=== PATIENT | male | born 1965 | race Caucasian/White ===

== ENCOUNTER 2020-09-20 17:01 | Inpatient (IN) | payer OTHER ==
[~2020-09-20] VITALS: Ht 182.9 cm; Wt 80.0 kg
[~2020-09-20 17:01] MED LIST: ALBU90OI INH; AMOX500 PO; CYCL10 PO; HYDACE5 PO; NAPR500 PO; OXYACE5T PO; PENVK500 PO; POTCHL20ER PO; PROACE100 PO; RXHYDACE PO; RXPROACE PO; TRAM50 PO
[2020-09-20 18:11] LABS: BASOPHILS ABSOLUTE AUTO 0.02 K/mm3 (0.00-0.23); BASOPHILS PERCENT AUTO 0 % (0-2); EOSINOPHILS ABSOLUTE AUTO 0.04 K/mm3 (0.00-0.68); EOSINOPHILS PERCENT AUTO 0 % (0-6); Hematocrit 42.6 % (37.0-53.0); Hemoglobin 14.1 g/dL (13.5-17.5); IMMATURE GRAN ABSOLUTE AUTO 0.04 K/mm3 (0.00-0.10); IMMATURE GRAN PERCENT AUTO 0 % (0-1); LYMPHOCYTES ABSOLUTE AUTO 2.28 K/mm3 (0.84-5.20); LYMPHOCYTES PERCENT AUTO 16 % (21-46); MONOCYTES ABSOLUTE AUTO 1.66 K/mm3 (0.16-1.47); MONOCYTES PERCENT AUTO 12 % (4-13); Mean Corpuscular HGB 30.7 pg (26.0-34.0); Mean Corpuscular HGB Conc 33.1 g/dL (31.5-36.5); Mean Corpuscular Volume 93 fL (80-100); Mean Platelet Volume 9.7 fL (9.1-12.4); NEUTROPHILS ABSOLUTE AUTO 9.98 K/mm3 (1.96-9.15); NEUTROPHILS PERCENT AUTO 71 % (41-73); Platelet Count 220 K/mm3 (150-400); RDW Coefficient Variation 13.3 % (11.7-14.2); RDW Standard Deviation 45.2 fL (35.1-46.3); White Blood Cell Count 14.02 K/mm3 (4.00-11.30)
[2020-09-20 18:42] LABS: Troponin I 0.156 ng/mL (0.000-0.040)
[2020-09-20 18:47] LABS: Alanine Aminotransfer (ALT/SGP 52 U/L (12-78); Albumin, Blood 3.5 g/dL (3.4-5.0); Albumin/Globulin Ratio 0.9 (0.8-1.8); Alk Phos 107 U/L (50-136); Anion Gap 4 mmol/L (6-16); Aspartate Aminotrans (AST/SGOT 21 U/L (12-37); Bilirubin, Total 1.7 mg/dL (0.1-1.0); Blood Urea Nitrogen 23 mg/dL (8-24); Bun/Creatinine Ratio 21.3 (12.0-20.0); CO2, Blood 25 mmol/L (21-32); Calcium, Blood 9.4 mg/dL (8.5-10.1); Chloride, Blood 108 mmol/L (98-108); Creatinine, Blood 1.08 mg/dL (0.60-1.20); Globulin, Blood 3.8 g/dL (2.2-4.0); Glomerular Filtration Rate >60 (60-); Glucose, Blood 97 mg/dL (70-99); Sodium, Blood 137 mmol/L (136-145); Total Protein, Blood 7.3 g/dL (6.4-8.2)
--- NOTE | 2020-09-21 00:47 | NUR ---
ADMIT NOTE PT ARRIVED TO PCU FROM ED VIA ED STRETCHER AT 2355. PT AMBULATED INDEPENDENTLY FROM ED STRETCHER TO PCU BED. PT A&OX4. SP02>92% ON RA. TELEMETRY READS ST W/ PACS, HR 100'S. PT DENIED PAIN. PT ASKING QUESTIONS ABOUT HIS CURRENT ILLNESS AND ASKING HOW HE CAN PREVENT EVENTS LIKE THIS IN THE FUTURE. PT ORIENTED TO ROOM AND CALL LIGHT. CALL LIGHTIN REACH.
[2020-09-21 02:11] LABS: BASOPHILS ABSOLUTE AUTO 0.02 K/mm3 (0.00-0.23); BASOPHILS PERCENT AUTO 0 % (0-2); EOSINOPHILS ABSOLUTE AUTO 0.16 K/mm3 (0.00-0.68); EOSINOPHILS PERCENT AUTO 1 % (0-6); Hematocrit 42.9 % (37.0-53.0); IMMATURE GRAN ABSOLUTE AUTO 0.04 K/mm3 (0.00-0.10); IMMATURE GRAN PERCENT AUTO 0 % (0-1); LYMPHOCYTES ABSOLUTE AUTO 2.91 K/mm3 (0.84-5.20); LYMPHOCYTES PERCENT AUTO 23 % (21-46); MONOCYTES PERCENT AUTO 12 % (4-13); Mean Corpuscular HGB 30.3 pg (26.0-34.0); Mean Corpuscular HGB Conc 32.6 g/dL (31.5-36.5); Mean Corpuscular Volume 93 fL (80-100); Mean Platelet Volume 9.7 fL (9.1-12.4); NEUTROPHILS PERCENT AUTO 63 % (41-73); Platelet Count 228 K/mm3 (150-400); RDW Coefficient Variation 13.3 % (11.7-14.2); RDW Standard Deviation 45.1 fL (35.1-46.3); Red Blood Cell Count 4.62 M/mm3 (4.30-5.90); White Blood Cell Count 12.63 K/mm3 (4.00-11.30)
[2020-09-21 02:32] LABS: Alanine Aminotransfer (ALT/SGP 47 U/L (12-78); Albumin, Blood 3.2 g/dL (3.4-5.0); Albumin/Globulin Ratio 0.8 (0.8-1.8); Alk Phos 103 U/L (50-136); Anion Gap 8 mmol/L (6-16); Aspartate Aminotrans (AST/SGOT 16 U/L (12-37); Bilirubin, Total 1.9 mg/dL (0.1-1.0); Blood Urea Nitrogen 22 mg/dL (8-24); CO2, Blood 26 mmol/L (21-32); CPK Creatine Kinase 77 U/L (39-308); Chloride, Blood 106 mmol/L (98-108); Globulin, Blood 3.9 g/dL (2.2-4.0); Glomerular Filtration Rate >60 (60-); Glucose, Blood 105 mg/dL (70-99); Potassium, Blood 3.5 mmol/L (3.5-5.5); Sodium, Blood 140 mmol/L (136-145); Total Protein, Blood 7.1 g/dL (6.4-8.2); Troponin I 0.134 ng/mL (0.000-0.040)
--- NOTE | 2020-09-21 04:18 | NUR ---
AFIB AT APPROX [address] TO AFIB. HR AVG 110'S. CALL PLACED TO MD WATT. MD WATT W/ ORDERS FOR METOPROLOL, SEE EMAR. WILL CONTINUE TO MONITOR.
[2020-09-21 04:49] LABS: Thyroid Stimulating Hormone 1.34 uIU/mL (0.360-4.800)
--- NOTE | 2020-09-21 05:35 | NUR ---
SHIFT SUMMARY PT A&OX4. SP02>92 %ON RA. TELEMETRY AT BEGINNING OF SHIFT READ ST. PT CONVERTED TO AFIB DURING SHIFT, SEE PREVIOUS NOTE AND STRIP IN CHART. HR AVG 110'S. PT USED URINAL MULTIPLE TIMES AT BEDSIDE. PT DENIED PAIN. PT SLEPT T/O NIGHT. CALL LIGHT IN REACH. BED IN LOWEST POSITION.
--- NOTE | 2020-09-21 09:59 | NUR ---
MORNING UPDATE PT WAS AWAKE, ALERT AND ORIENTED THIS MORNING. PT SEEMED NERVOUS ABOUT HIS NEW DIAGNOSIS OF HEART FAILURE AND AFIB. RN AZUL PROVIDED SOME EDUCATION ON WHAT THE DISEASE PROCESS IS LIKE AND WHAT THE GENERAL TREATMENT PLAN IS FOR AFIB AND CHF. PT GAVE VERBAL UNDERSTANDING AND WAS GIVEN SEVERAL OPPORUTNITIES TO EXPRESS CONCERN AND ASK QUESTIONS. PT SEEMED LESS ANXIOUS BY THE END OF THE CONVERSATION AND STATED THAT HE WOULD BE FINE. PT IS NOW WITH IMAGING FOR CT
[2020-09-21 10:15] LABS: Troponin I 0.097 ng/mL (0.000-0.040)
--- NOTE | 2020-09-21 17:28 | NUR ---
SHIFT SUMMARY PT HAS HAD STABLE VS THROUGHOUT THE DAY, PT REMAINS ON RA. PT HAD MANY QUESTIONS IN REGARDS TO HIS DIAGNOSIS AND WAS GIVEN APPROPRIATE GENERAL EDUCATION REGARDING CHF AND THE EFFECTS ON THE BODY AND COMMON TREATMENTS. PT WAS ALSO GIVEN EDUCATION REGARDING AFIB/AFLUTTER AND TREATMENT THAT IS USED FOR THAT. PT GAVE VERBAL UNDERSTANDINGS. PT HAS BEEN RESTING IN BED WATCHING TV. PT HAS EXPRESSED SEVERAL TIMES THAT HE IS WANTING TO GO HOME; AND ACCORDING TO THE PT DR. ELIZONDO STATED THAT MOST LIKELY TOMORROW HE WOULD BE ABLE TO DISCHARGE. AFIB AND TACHYCARDIA HAS BEEN CONTROLLED WITH MEDICATIONS TODAY; OCCASSIONALLY PT WILL HAVE MORE ELEVATED HR WITH ACTIVITY BUT DOES NOT SUSTAIN ONCE RESTING. PT IS EATING DINNER IN HIS ROOM AT THIS TIME
--- NOTE | 2020-09-21 23:12 | NUR ---
PATIENT ALERT AND ORIENTED. INDEPENDENT IN ROOM. ASKING TO GO SMOKE, WILL CALL HOSPITALIST FOR NICOTINE PATCH. 02 SATS >90% ON RA. VSS. PATIENT SLEEPING NOW. CALL LIGHT IN REACH.
[2020-09-22 04:45] LABS: Albumin, Blood 3.1 g/dL (3.4-5.0); Albumin/Globulin Ratio 0.7 (0.8-1.8); Bilirubin, Total 0.4 mg/dL (0.1-1.0); Bun/Creatinine Ratio 25.9 (12.0-20.0); Calcium, Blood 9.4 mg/dL (8.5-10.1); Creatinine, Blood 1.39 mg/dL (0.60-1.20); Globulin, Blood 4.3 g/dL (2.2-4.0); Magnesium, Blood 2.3 mg/dL (1.6-2.4); Phosphorus, Blood 4.1 mg/dL (2.5-4.9); Potassium, Blood 4.2 mmol/L (3.5-5.5); Total Protein, Blood 7.4 g/dL (6.4-8.2)
[2020-09-22 06:09] LABS: Hematocrit 48.3 % (37.0-53.0); Hemoglobin 15.8 g/dL (13.5-17.5); Mean Corpuscular HGB 30.5 pg (26.0-34.0); Mean Corpuscular HGB Conc 32.7 g/dL (31.5-36.5); Mean Corpuscular Volume 93 fL (80-100); Mean Platelet Volume 10.2 fL (9.1-12.4); Platelet Count 244 K/mm3 (150-400); RDW Coefficient Variation 13.3 % (11.7-14.2); RDW Standard Deviation 45.8 fL (35.1-46.3); Red Blood Cell Count 5.18 M/mm3 (4.30-5.90); White Blood Cell Count 12.61 K/mm3 (4.00-11.30)
--- NOTE | 2020-09-22 06:17 | NUR ---
SHIFT SUMMARY PATIENT SLEPT MOST THE NIGHT. CONVERTED FROM A.FLUTTER TO SR 80s-90s. VSS. NO ACUTE CHANGES. 02 SATS >95% ON ROOM AIR. CALL LIGHT IN REACH.
--- NOTE | 2020-09-22 09:42 | NUR ---
MORNING UPDATE PT WAS SLEEPING DURING SHIFT CHANGE. PT WAS COOPERATIVE WITH MORNING MEDS AND ASSESSMENT. PT RECEIVED EDUCATION ON HIS HEART RHYTHM CHANGE BACK TO SINUS RHYTHM AND WAS VERY PLEASED THAT THE MEDICATION WAS WORKING. ORDERED A STRESS TEST THIS MORNING AND PT REFUSED STATING "I NEED TO GET HOME, I NEED TO GET BACK TO WORK, I CAN'T LOSE THIS JOB." WAS INFORMED AND AGREED TO DISCHARGE THE PATIENT AND SET HIM UP WITH OUTPATIENT STRESS TEST AND DISCHARGE ORDERS; PT AGREED. PT IS RESTING IN BED AT THIS TIME. VS STABLE, HR 90s SR PT ON RA.
[2020-09-22] MEDS ORDERED: Amoxicillin500 MG PO (10:34)
[2020-09-22] MEDS ORDERED: Acetaminophen325 M1 PO (10:35)
[2020-09-22] MEDS ORDERED: AZIT500 PO (10:36)
[2020-09-22] MEDS ORDERED: FURO20 PO (10:39)
[2020-09-22] MEDS ORDERED: COMBIVENT RESPIM4 G1 INH (10:40)
[2020-09-22] MEDS ORDERED: AZO CRANBERRY PO (11:12)
[2020-09-22] MEDS ORDERED: METO25ER PO (11:17)
[2020-09-22] MEDS ORDERED: NICO21TP TOP (11:18)
[2020-09-22] MEDS ORDERED: ONDA4 PO (11:19)
[2020-09-22] MEDS ORDERED: Lisinopril2.5 MG PO (11:20)
[2020-09-22] MEDS ORDERED: POTA10T PO (11:21)
[2020-09-22] MEDS ORDERED: SPIR25 PO (11:22)
--- NOTE | 2020-09-22 12:31 | NUR ---
DISCHARGE PT HAS DISCHARGED. HE WALKED OUT ESCORTED BY CASHIER CHECKER AT APPROXIMATELY 1215. IV'S AND TELE WERE REMOVED, PT TOLERATED WELL. VS STABLE, PT ON RA. HOME O2 STUDY COMPLETED, PT MAINTAINED SAT 99-100% ON RA AT REST AND 97-99% WHILE WALKING IN THE RING ON RA. PT WAS GIVEN EDUCATION REGARDING HF AND NEW MEDICATIONS. NEW PRESCRIPTIONS WERE SENT TO [facility] IN [place]. PT WAS GIVEN INSTRUCTIONS FOR FOLLOW-UP APPOINTMENTS AND ANABELLA LIANG ESTABLISHED CARE WITH A PCP AT [facility] FOR THE PT HE HAD NO ESTABLISHED PCP. PT WAS ENCOURAGED TO GO TO APPOINTMENTS AND COMPLY WITH MEDICATIONS, STOP SMOKING AND AVOID ALCOHOL AND DRUGS. PT GAVE VERBAL UNDERSTANDING OF ALL DISCHARGE INSTRUCTIONS.
[2020-10-11] MEDS ORDERED: Lisinopril2.5 MG PO (19:40)
[2020-10-19] MEDS ORDERED: ACET325UDC PO (09:29)
[2020-10-19] MEDS ORDERED: AMOCLA875 PO (09:30)
[2020-10-19] MEDS ORDERED: Benadryl Itch28.3 G1 TOP (09:30)
[2020-10-19] MEDS ORDERED: OLAN10 PO (09:31)
[2020-10-19] MEDS ORDERED: METO25 PO (09:31)
[2020-10-19] MEDS ORDERED: PRED20 PO (09:36)
[2020-10-19] MEDS ORDERED: XARELTO20 MG PO (09:36)
[2020-10-19] MEDS ORDERED: ARTIFICIAL TEAR15 M2 BOTHEYES (09:36)
[2020-10-19] MEDS ORDERED: VISBIOME 112.51 EACH PO (09:37)
== END 2020-09-22 12:26 | disposition home or self-care (01) | DRG 291 ==
LOC: ER 17:01 → PCU 23:54
PROVIDERS: Family Medicine; Internal Medicine; Physician Assistant; ADMIT Internal Medicine
PROC: 3E0234Z Introduction of Serum, Toxoid and Vaccine into Muscle, Percutaneous Approach (ICD-10-PCS; principal; 2020-09-21)
DX: I11.0 Hypertensive heart disease with heart failure (principal); J96.01 Acute respiratory failure with hypoxia; I50.9 Heart failure, unspecified; Z20.822 Contact with and (suspected) exposure to COVID-19; I08.1 Rheumatic disorders of both mitral and tricuspid valves; R91.8 Other nonspecific abnormal finding of lung field; Z23 Encounter for immunization
CPT/HCPCS: 36415; 71045; 71260; 80053; 82550; 83735; 83880; 84100; 84443; 84484; 85025; 85027; 85379; 93005; 93010; 93306; 96374; 96375; 99285-25; A9270; G0008; J0696; J1650; J1940; J2060; Q2038; Q9967

== ENCOUNTER 2020-10-04 03:59 | Emergency (ER) | payer OTHER ==
[~2020-10-04] VITALS: Ht 182.9 cm; Wt 77.1 kg
[~2020-10-04 03:59] MED LIST changes: +AZIT500 PO; +AZO CRANBERRY PO; +Acetaminophen325 M1 PO; +Amoxicillin500 MG PO; +COMBIVENT RESPIM4 G1 INH; +FURO20 PO; +Lisinopril2.5 MG PO; +METO25ER PO; +NICO21TP TOP; +ONDA4 PO; +POTA10T PO; +SPIR25 PO
[2020-10-04 05:09] LABS: BASOPHILS ABSOLUTE AUTO 0.04 K/mm3 (0.00-0.23); BASOPHILS PERCENT AUTO 0 % (0-2); EOSINOPHILS ABSOLUTE AUTO 0.13 K/mm3 (0.00-0.68); EOSINOPHILS PERCENT AUTO 1 % (0-6); Hematocrit 49.4 % (37.0-53.0); Hemoglobin 15.6 g/dL (13.5-17.5); IMMATURE GRAN ABSOLUTE AUTO 0.05 K/mm3 (0.00-0.10); IMMATURE GRAN PERCENT AUTO 0 % (0-1); LYMPHOCYTES ABSOLUTE AUTO 2.88 K/mm3 (0.84-5.20); LYMPHOCYTES PERCENT AUTO 25 % (21-46); MONOCYTES ABSOLUTE AUTO 0.86 K/mm3 (0.16-1.47); MONOCYTES PERCENT AUTO 7 % (4-13); Mean Corpuscular HGB 30.8 pg (26.0-34.0); Mean Corpuscular HGB Conc 31.6 g/dL (31.5-36.5); Mean Corpuscular Volume 97 fL (80-100); Mean Platelet Volume 10.1 fL (9.1-12.4); NEUTROPHILS ABSOLUTE AUTO 7.76 K/mm3 (1.96-9.15); NEUTROPHILS PERCENT AUTO 66 % (41-73); Platelet Count 296 K/mm3 (150-400); RDW Coefficient Variation 14.2 % (11.7-14.2); RDW Standard Deviation 49.4 fL (35.1-46.3); Red Blood Cell Count 5.07 M/mm3 (4.30-5.90); White Blood Cell Count 11.72 K/mm3 (4.00-11.30)
[2020-10-04 05:23] LABS: Albumin, Blood 3.5 g/dL (3.4-5.0); Albumin/Globulin Ratio 0.8 (0.8-1.8); Bilirubin, Total 1.2 mg/dL (0.1-1.0); Bun/Creatinine Ratio 16.9 (12.0-20.0); Calcium, Blood 9.1 mg/dL (8.5-10.1); Creatinine, Blood 1.54 mg/dL (0.60-1.20); Globulin, Blood 4.3 g/dL (2.2-4.0); Potassium, Blood 4.1 mmol/L (3.5-5.5); Total Protein, Blood 7.8 g/dL (6.4-8.2); Troponin I 0.128 ng/mL (0.000-0.040)
[2020-10-11] MEDS ORDERED: Lisinopril2.5 MG PO (19:40)
[2020-10-19] MEDS ORDERED: ACET325UDC PO (09:29)
[2020-10-19] MEDS ORDERED: AMOCLA875 PO (09:30)
[2020-10-19] MEDS ORDERED: Benadryl Itch28.3 G1 TOP (09:30)
[2020-10-19] MEDS ORDERED: OLAN10 PO (09:31)
[2020-10-19] MEDS ORDERED: METO25 PO (09:31)
[2020-10-19] MEDS ORDERED: ARTIFICIAL TEAR15 M2 BOTHEYES (09:36)
[2020-10-19] MEDS ORDERED: PRED20 PO (09:36)
[2020-10-19] MEDS ORDERED: XARELTO20 MG PO (09:36)
[2020-10-19] MEDS ORDERED: VISBIOME 112.51 EACH PO (09:37)
== END 2020-10-04 08:16 | disposition home or self-care (01) ==
LOC: ER 03:59
PROVIDERS: Student in an Organized Health Care Education/Training Program
DX: I48.92 Unspecified atrial flutter (principal); I50.9 Heart failure, unspecified; Z91.14 Patient's other noncompliance with medication regimen; Z79.899 Other long term (current) drug therapy; Z87.891 Personal history of nicotine dependence
CPT/HCPCS: 36415; 71045; 80053; 83880; 84484; 85025; 93005; 93010; 94640; 96374; 96375; 99285-25; A9270; J1940; J2060

== ENCOUNTER 2020-10-11 18:34 | Inpatient (IN) | payer OTHER ==
[~2020-10-11] VITALS: Ht 182.9 cm; Wt 71.9 kg
[2020-10-11 19:18] LABS: BASOPHILS ABSOLUTE AUTO 0.05 K/mm3 (0.00-0.23); BASOPHILS PERCENT AUTO 0 % (0-2); EOSINOPHILS ABSOLUTE AUTO 0.06 K/mm3 (0.00-0.68); EOSINOPHILS PERCENT AUTO 0 % (0-6); Hematocrit 45.2 % (37.0-53.0); Hemoglobin 14.1 g/dL (13.5-17.5); Mean Corpuscular HGB 30.8 pg (26.0-34.0); Mean Corpuscular HGB Conc 31.2 g/dL (31.5-36.5); Mean Corpuscular Volume 99 fL (80-100); Mean Platelet Volume 11.8 fL (9.1-12.4); NRBC ABSOLUTE 0.02 K/mm3 (0.00-0.02); NRBC Auto 0.1 /100 WBC (0.0-0.2); Platelet Count 139 K/mm3 (150-400); RDW Coefficient Variation 14.1 % (11.7-14.2); RDW Standard Deviation 50.5 fL (35.1-46.3); Red Blood Cell Count 4.58 M/mm3 (4.30-5.90); White Blood Cell Count 16.87 K/mm3 (4.00-11.30)
[2020-10-11 19:24] LABS: IMMATURE GRAN ABSOLUTE AUTO 0.08 K/mm3 (0.00-0.10); IMMATURE GRAN PERCENT AUTO 1 % (0-1); LYMPHOCYTES ABSOLUTE AUTO 4.26 K/mm3 (0.84-5.20); LYMPHOCYTES PERCENT AUTO 25 % (21-46); MONOCYTES ABSOLUTE AUTO 1.83 K/mm3 (0.16-1.47); MONOCYTES PERCENT AUTO 11 % (4-13); NEUTROPHILS ABSOLUTE AUTO 10.59 K/mm3 (1.96-9.15); NEUTROPHILS PERCENT AUTO 63 % (41-73)
[2020-10-11] MEDS ORDERED: Lisinopril2.5 MG PO ×2 (19:40)
[2020-10-11 19:48] LABS: Albumin, Blood 3.5 g/dL (3.4-5.0); Albumin/Globulin Ratio 0.9 (0.8-1.8); Bilirubin, Total 4.1 mg/dL (0.1-1.0); Bun/Creatinine Ratio 30.4 (12.0-20.0); Calcium, Blood 8.8 mg/dL (8.5-10.1); Creatinine, Blood 1.71 mg/dL (0.60-1.20); Globulin, Blood 3.9 g/dL (2.2-4.0); Potassium, Blood 5.2 mmol/L (3.5-5.5); Total Protein, Blood 7.4 g/dL (6.4-8.2); Troponin I 0.176 ng/mL (0.000-0.040)
[2020-10-11 20:32] LABS: Base Excess Venous -13.4 mmol/L; Bicarbonate Venous 14.8 mmol/L (24.0-30.0); PCO2 Venous 25.8 mmHg (38-42); PO2 Venous 42.4 mmHg (38-42); pH Blood Venous 7.31 (7.34-7.37)
[2020-10-11 22:46] LABS: Influenza A, PCR NEGATIVE (NEGATIVE); Influenza B, PCR NEGATIVE (NEGATIVE); Resp Syncytial Virus, PCR NEGATIVE (NEGATIVE); SARS-Cov-2 (COVID-19) PCR, MMC NEGATIVE (NEGATIVE)
[2020-10-11 22:49] LABS: Source, Urine Catheter
[2020-10-11 22:52] LABS: Blood, Urine 2+ (Neg); Glucose Qualitative, Urine Neg (Neg); Ketones, Urine 1+ (Neg); Leukocyte Esterase, Urine 1+ (Neg); Nitrite, Urine Neg (Neg); Protein, Urine 3+ (Neg); Specific Gravity, Urine 1.025 (1.003-1.022); Urobilinogen, Urine 2+ (Normal)
[2020-10-11 22:54] LABS: Appearance, Urine Clear (Clear); Bilirubin, Urine 1+ (Neg); Color, Urine Amber (P-Yellow)
[2020-10-11 22:58] LABS: Red Blood Cells, Urine 0-2 /hpf (0-2)
[2020-10-11 22:59] LABS: Amorphous Mod (0-Heavy); Bacteria Mod /hpf; Squamous Epithelial Cells Not Seen /hpf (Few)
[2020-10-11 23:07] LABS: International Normalized Ratio 2.22; Prothrombin Time Results 22.7 Sec (9.7-11.5)
[2020-10-11 23:10] LABS: Troponin I 0.178 ng/mL (0.000-0.040)
[2020-10-11 23:34] LABS: Magnesium, Blood 2.2 mg/dL (1.6-2.4)
--- NOTE | 2020-10-12 | NUR ---
PT ARRIVES TO ICU 10 VIA GURNEY FROM ER AT 2345 . PT IS NOTED SEDATED AND INTUBATED, GTTS INFUSING ARE VERSED AT 7 MG/HR, PROPOFOL AT 70 MCG/KG/MIN, NS @ 100 ML/HR VENT SETTINGS ARE AC 16, TV 500, FIO2 60%, AND PEEP 5.0, ETT 8.0 AND 25 AT TEETH, VERIFIED WITH RT PREVIOUSLY DOCUMENTED AT 23 CM AT TIME OF INSERTION, PER ABRAHAM DHILLON, CXR WAS DONE WITH ETT @ 25 CM AT TEETH. LUNGS ARE CLEAR WITH DIM BASES BILAT, PT IS NOTED WITH NO GAG WITH ORAL CARE HOWEVER STRONG COUGH IS NOTED WITH TURNING TO REMOVE ER LINEN. HEART RATE IS NOTED 140S, AFLUTTER WITH 2:1 CONDUCTION, PRESSURES SOFT BUT MAINTAINING MAP, NO EDEMA IS NOTED HOWEVER JVD IS PRESENT WELL MARKED SCALP VEIN DISTENTION. 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 IV ACCESS IS LEFT HAND, LEFT AC, AND RIGHT EJ, SEE VASCULAR ACCESS CHARTING.
[2020-10-12 00:52] LABS: U Amphetamine Screen DETECTED; U Barbituate Screen Not Detected; U Benzodiazapine Screen Not Detected; U Buprenorphine Screen Not Detected; U Cannabinoids Screen DETECTED; U Cocaine Screen Not Detected; U Methadone Screen Not Detected; U Methamphetamine Screen DETECTED; U Opiates Screen Not Detected; U Oxycodone Screen Not Detected; U Phencyclidine Screen Not Detected; U Propoxyphene Screen Not Detected
--- NOTE | 2020-10-12 03:15 | NUR ---
SPOKE WITH DR BLAS REGARDING LOPRESSOR ADMINISTRATION, TOTAL OF LOPRESSOR 1.25 MG IV WAS ADMINISTERED SLOWLY AND PT BECAME INCREASINGLY HYPOTENSIVE, ADMINISTRATION WAS STOPPED, PROPOFOL AND VERSED RATES BOTH DECREASED AND CONTINUING TO TITRATE FOR HYPOTENSION, PT LAST BP NOTED AT 114/82, HEART RATE IS IMPROVED TO 110-120S NOW NOTED AFIB. NEW ORDERS FOR HEPARIN GTT AND AMIODARONE ADMINISTRATION.
--- NOTE | 2020-10-12 04:40 | NUR ---
SPOKE WITH DR BLAS REGARDING ORDERED AMIODARONE BOLUS, CONTINUING TO HOLD AT THIS TIME FOR HYPOTENSION HOWEVER RATE REMAINS IMPROVED.
--- NOTE | 2020-10-12 06:22 | NUR ---
PT REMAINS SEDATED AND INTUBATED, PROPOFOL HAS BEEN TITRATED DOWN TO 20 MCG/KG/MIN, VERSED TITRATED DOWN TO 2 MG/HR, GRIMACE TO BROW IS NOTED PT CONTINUES WITHOUT GAG AND RESP RATE IS 16/MIN. FIO2 TITRATED DOWN TO 25% THIS SHIFT OTHERWISE VENT SETTINGS REMAIN UNCHANGED, LUNGS REMAIN CLEAR THROUGHOUT. INITIAL RATE AND RHYTHM AFLUTTER 2:1 CONDUCTION IN THE 140S, PRESSURES DROPPED WITH ADMINSITRATION OF LOPRESSOR 1.25 MG IV HOWEVER HEART RATE ALSO DECREASED TO 110-120S, REMAINDER OF ORDERED DOSE OF 5 MG WAS DISCARDED AND DR BLAS NOTIFIED, AMIODARONE WAS ORDERED HOWEVER HELD DUE TO HYPOTENSION, DR BLAS WAS NOTIFIED AND CAME TO BEDSIDE TO ASSESS PT AT 0600, NS 250 ML BOLUS ORDERED AND ADMINISTERED.
[2020-10-12 07:00] LABS: BASOPHILS ABSOLUTE AUTO 0.04 K/mm3 (0.00-0.23); BASOPHILS PERCENT AUTO 0 % (0-2); EOSINOPHILS ABSOLUTE AUTO 0.11 K/mm3 (0.00-0.68); EOSINOPHILS PERCENT AUTO 1 % (0-6); Hematocrit 35.5 % (37.0-53.0); Hemoglobin 11.4 g/dL (13.5-17.5); IMMATURE GRAN ABSOLUTE AUTO 0.04 K/mm3 (0.00-0.10); IMMATURE GRAN PERCENT AUTO 0 % (0-1); LYMPHOCYTES PERCENT AUTO 23 % (21-46); MONOCYTES ABSOLUTE AUTO 0.76 K/mm3 (0.16-1.47); MONOCYTES PERCENT AUTO 7 % (4-13); Mean Corpuscular HGB 30.2 pg (26.0-34.0); Mean Corpuscular HGB Conc 32.1 g/dL (31.5-36.5); Mean Platelet Volume 11.3 fL (9.1-12.4); NEUTROPHILS ABSOLUTE AUTO 8.03 K/mm3 (1.96-9.15); NEUTROPHILS PERCENT AUTO 69 % (41-73); Platelet Count 118 K/mm3 (150-400); RDW Standard Deviation 47.3 fL (35.1-46.3); Red Blood Cell Count 3.78 M/mm3 (4.30-5.90); White Blood Cell Count 11.58 K/mm3 (4.00-11.30)
[2020-10-12 07:02] LABS: Mean Corpuscular Volume 94 fL (80-100)
[2020-10-12 07:25] LABS: Troponin I 0.144 ng/mL (0.000-0.040)
--- NOTE | 2020-10-12 11:09 | NUR ---
Echocardiogram completed.
--- NOTE | 2020-10-12 11:42 | NUR ---
CARE OF PT ASSUMED AT 0700 THIS AM. PT SEDATED ON PROPOFOL AT 15MCG, VERSED AT 2MG/HR FOR MECH VENT. PT'S PUPILS PINPOINT, PT GRIMACES W ORAL CARE AND HAS STRONG COUGH. PT HYPOTENSIVE THIS AM W MAPS <60. PT IN A FLUTTER W RATE 110-130. PT HAS <10CC U/O. DR LUDWIG GIVEN UPDATE AROUND 0800. PICC LINE PLACED, LEVOPHED STARTED AND TITRATED UP TO 6MCG TO KEEP MAP >65. BP'S SOMEWHAT LABILE. ECHO COMPLETED. PT ON HEPARIN GTT AT 13UNITS, BICARB GTT TO BE DC'D AFTER THIS LITER COMPLETE. VERSED DC'D AT [address] LUDWIG.
--- NOTE | 2020-10-12 12:25 | NUR ---
VERSED DC'D AT [address] LUDWIG. 105CC WASTED W WOLF GEE RN AT 1225.
[2020-10-12 12:30] LABS: International Normalized Ratio 1.87; Prothrombin Time Results 19.3 Sec (9.7-11.5)
--- NOTE | 2020-10-12 13:03 | NUR ---
HEPARIN GTT PLACED ON HOLD PER PHARMACY/DR LUDWIG INR IS THERAPEUTIC. CARDIZEM 10MG IVP FOLLOWED BY GTT ORDERED FOR AFLUTTER W RATE 130-150. LEVOPHED DECREASED TO 4MCG.
--- NOTE | 2020-10-12 13:46 | NUR ---
MOST RECENT INR <2, HEPARIN TO BE RESTARTED, AWAITING NEW ORDERS FROM PHARMACY. RATE 100-130; CARDIZEM TO BE HELD FOR NOW PER DR LUDWIG.
--- NOTE | 2020-10-12 14:35 | NUR ---
HEPARIN GTT RESTARTED AT 15UNITS/KG/HR W 4,000 UNIT HEP BOLUS. LEVOPHED DECREASED TO 2 MCG.
[2020-10-12 15:55] LABS: Troponin I 0.14 ng/mL (0.000-0.040)
[2020-10-12 15:57] LABS: Albumin, Blood 2.7 g/dL (3.4-5.0); Albumin/Globulin Ratio 0.9 (0.8-1.8); Bilirubin, Total 3.7 mg/dL (0.1-1.0); Bun/Creatinine Ratio 31.3 (12.0-20.0); Calcium, Blood 8.9 mg/dL (8.5-10.1); Creatinine, Blood 1.66 mg/dL (0.60-1.20); Globulin, Blood 3.1 g/dL (2.2-4.0); Potassium, Blood 3.9 mmol/L (3.5-5.5); Total Protein, Blood 5.8 g/dL (6.4-8.2)
--- NOTE | 2020-10-12 16:04 | NUR ---
LEVOPHED OFF, SBP 130'S. PT REMAINS IN AFLUTTER W RATE 100-130. PT HAS MADE NO URINE; DR LUDWIG AWARE; PT TO START DIURETICS TOMORROW. PT CONTINUE TO GRIMACE W STIMULI, GROSS MOVEMENT OF EXT'S NOTED. PROPOFOL REMAINS AT 15MCG. PT HAS NOT RECEIVED ADDITIONAL SEDATION/NARCOTICS THIS SHIFT.
--- NOTE | 2020-10-12 17:10 | NUR ---
PT MOD RESTLESS, EYES PARTIALLY OPEN. PT SLIGHTLY TURNS HEAD TOWARDS VOICE BUT UNABLE TO FOLLOW COMMANDS. PUPILS 3/3 EQUAL AND REACTIVE. HEART RATE ELEVATED 140'S. PROPOFOL INCREASED TO 30MCG
--- NOTE | 2020-10-12 19:00 | NUR ---
ASSUMED CARE ASSUMED CARE OF PATIENT. REMAINS INTUBATED- AC 16, TV 500, PEEP 5, FIO2 25%. RR 26. SEDATED WITH PROPOFOL AT 30MCG/KG/MIN. WITHDRAWS TO NOXIOUS STIMULI. MINIMAL GROSS MOTOR MOVEMENT NOTED OTHERWISE, MOSTLY MOVING HEAD. ATTEMPTS TO OPEN EYES. BILATERAL SOFT WRIST RESTRAINTS IN PLACE. MONITOR SHOWS AFLUTTER, RATE 140s-150s. BP STABLE. LEVOPHED REMAINS OFF. TEMP 99.5F PER VELÁZQUEZ TEMP PROBE. OG TO LIS WITH BROWN DRAINAGE. VELÁZQUEZ PATENT AND DRAINING SCANT KARSTEN URINE. HEPARIN GTT INFUSING PER ORDER AT 15UNITS/KG/HR. SEE SHIFT ASSESSMENT FOR FULL ASSESSMENT.
[2020-10-13 04:25] LABS: BASOPHILS ABSOLUTE AUTO 0.04 K/mm3 (0.00-0.23); BASOPHILS PERCENT AUTO 0 % (0-2); EOSINOPHILS ABSOLUTE AUTO 0.09 K/mm3 (0.00-0.68); EOSINOPHILS PERCENT AUTO 1 % (0-6); Hematocrit 39.6 % (37.0-53.0); Hemoglobin 13.1 g/dL (13.5-17.5); IMMATURE GRAN ABSOLUTE AUTO 0.05 K/mm3 (0.00-0.10); IMMATURE GRAN PERCENT AUTO 0 % (0-1); LYMPHOCYTES ABSOLUTE AUTO 0.95 K/mm3 (0.84-5.20); LYMPHOCYTES PERCENT AUTO 7 % (21-46); MONOCYTES ABSOLUTE AUTO 1.16 K/mm3 (0.16-1.47); MONOCYTES PERCENT AUTO 9 % (4-13); Mean Corpuscular HGB Conc 33.1 g/dL (31.5-36.5); Mean Corpuscular Volume 94 fL (80-100); Mean Platelet Volume 11.4 fL (9.1-12.4); NEUTROPHILS ABSOLUTE AUTO 10.98 K/mm3 (1.96-9.15); NEUTROPHILS PERCENT AUTO 83 % (41-73); Platelet Count 148 K/mm3 (150-400); RDW Coefficient Variation 14.6 % (11.7-14.2); RDW Standard Deviation 48.1 fL (35.1-46.3); Red Blood Cell Count 4.22 M/mm3 (4.30-5.90); White Blood Cell Count 13.27 K/mm3 (4.00-11.30)
[2020-10-13 04:40] LABS: International Normalized Ratio 1.5; Prothrombin Time Results 15.7 Sec (9.7-11.5)
[2020-10-13 04:49] LABS: Albumin, Blood 2.6 g/dL (3.4-5.0); Albumin/Globulin Ratio 0.8 (0.8-1.8); Bilirubin, Total 3.9 mg/dL (0.1-1.0); Bun/Creatinine Ratio 26.2 (12.0-20.0); Calcium, Blood 8.3 mg/dL (8.5-10.1); Creatinine, Blood 2.37 mg/dL (0.60-1.20); Globulin, Blood 3.2 g/dL (2.2-4.0); Potassium, Blood 4.7 mmol/L (3.5-5.5); Total Protein, Blood 5.8 g/dL (6.4-8.2)
[2020-10-13 05:40] LABS: PCO2 Arterial 29.5 mmHg (35-45); PO2 Arterial 76.4 mmHg (80-100); pH Blood Arterial 7.48 (7.35-7.45)
--- NOTE | 2020-10-13 06:46 | NUR ---
SHIFT SUMMARY NO ACUTE CHANGES. REMAINS INTUBATED- AC 16, TV 500, PEEP 5, FIO2 25%. SEDATED WITH PROPOFOL AT 30MCG/KG/MIN T/O MOST OF NOC. TITRATED OFF THIS AM FOR WEANING TRIAL. SEE RT DOCUMENTATION. PT DOES NOT FOLLOW COMMANDS. WITHDRAWS EXTREMITES TO STIMULI. VELÁZQUEZ WITH IMPROVED URINE OUTPUT. HEPARIN CONTINUES AT 17UNITS/KG/HR PER PHARMACY. CARDIZEM INFUSED BETWEEN 5-15MG/HR. NOW INFUSING AT 5MG/HR. CONTINUES WITH AFIB/FLUTTER, RATE 70s THIS AM. OG TO LIS. WILL REPORT TO ONCOMING RN WHEN AVAILABLE.
--- NOTE | 2020-10-13 08:45 | NUR ---
CARE ASSUMED OF PT THIS AM AT 0700, BEDSIDE REPORT TAKEN. PT SEDATED ON PROPOFOL AT 15MCG FOR MECH VENT. AC16/500/255/5. LUNGS CLEAR, DIMINISHED TO BASES. MODERATE AMT OF THICK SECRETIONS. SATS >95%. PT DID NOT PASS WEAN THIS AM RESP >40 AND TV<300. PT REMAINS IN A FLUTTER W RATE 70-90. CARDIZEM GTT INFUSING AT 5MG. HEPARIN GTT AT 17. PT RESTLESS AT TIMES, MOVES HEAD BACK AND FORTH, OPENS EYES SPONT. DOES NOT FOLLOW DIRECTIONS, DOES NOT TRACK W EYES. U/O HAS IMPROVED OVERNIGHT. BP REMAINS STABLE; PT REMAINS OFF OF PRESSORS. OG PUTTIMG OUT WHAT APPEARS TO BE SMALL AMTS OF OLD BLOOD, H&H STABLE; WILL NOTIFY DR LUDWIG.
--- NOTE | 2020-10-13 09:20 | NUR ---
DR LUDWIG IN THIS AM, FULL UPDATE GIVEN. WILL MONITOR OG OUTPUT. PROPOFOL PLACED ON STANDBY FOR 30MIN. PT WAS MORE AWAKE, BUT STILL UNABLE TO TRACK W EYES OR FOLLOW SIMPLE COMMANDS. PT RESTLESS, KICKED LEGS, GRIMACED HARSHLY, APPEARED VERY UNCOMFORTABLE. PROPOFOL RESTARTED AT 15MCG.
--- NOTE | 2020-10-13 12:11 | NUR ---
AC DECREASED TO [address] LUDWIG. PT SLIGHTLY MORE RESTLESS ON PROPOFOL AT 15MCG, NO OTHER CHANGES.
--- NOTE | 2020-10-13 13:58 | NUR ---
HEPARIN GTT INCREASED TO 18UNITS PER PHARMACY, REPEAT LABS ORDERED FOR 2100.
--- NOTE | 2020-10-13 16:14 | NUR ---
NO ACUTE CHANGES IN ASSESSMENT.
--- NOTE | 2020-10-13 19:00 | NUR ---
ASSUMED CARE ASSUMED CARE OF PATIENT. INTUBATED- AC 12, TV 500, PEEP 5, FIO2 25%. RR 20. SEDATED WITH PROPOFOL AT 15MCG/KG/MIN. PERIODS OF AGITATION AND RESTLESSNESS NOTED. MOVES ALL EXTREMITIES AND SHIFTS SELF IN BED, BUT NOT FOLLOWING COMMANDS. OPENS EYES SPONTANEOUSLY. BILATERAL SOFT WRIST RESTRAINTS IN PLACE. MONITOR SHOWS AFLUTTER, RATE 70s. BP STABLE. OG WITH PIVOT 1.5 INFUSING AT 25CC/HR (GOAL IS 45CC/HR). VELÁZQUEZ PATENT AND DRAINING DARK KARSTEN URINE. HEPARIN INFUSING AT 18UNITS/KG/HR PER PHARMACY. CARDIZEM GTT AT 5MG/HR. SEE SHIFT ASSESSMENT FOR FULL ASSESSMENT.
[2020-10-14 04:28] LABS: BASOPHILS ABSOLUTE AUTO 0.03 K/mm3 (0.00-0.23); BASOPHILS PERCENT AUTO 0 % (0-2); EOSINOPHILS ABSOLUTE AUTO 0.51 K/mm3 (0.00-0.68); EOSINOPHILS PERCENT AUTO 6 % (0-6); Hematocrit 37.9 % (37.0-53.0); Hemoglobin 12.2 g/dL (13.5-17.5); IMMATURE GRAN ABSOLUTE AUTO 0.03 K/mm3 (0.00-0.10); IMMATURE GRAN PERCENT AUTO 0 % (0-1); LYMPHOCYTES ABSOLUTE AUTO 2.08 K/mm3 (0.84-5.20); LYMPHOCYTES PERCENT AUTO 22 % (21-46); MONOCYTES PERCENT AUTO 10 % (4-13); Mean Corpuscular HGB 30.8 pg (26.0-34.0); Mean Corpuscular HGB Conc 32.2 g/dL (31.5-36.5); Mean Corpuscular Volume 96 fL (80-100); Mean Platelet Volume 11.4 fL (9.1-12.4); NEUTROPHILS ABSOLUTE AUTO 5.75 K/mm3 (1.96-9.15); NEUTROPHILS PERCENT AUTO 62 % (41-73); Platelet Count 139 K/mm3 (150-400); RDW Coefficient Variation 14.9 % (11.7-14.2); RDW Standard Deviation 50.4 fL (35.1-46.3); Red Blood Cell Count 3.96 M/mm3 (4.30-5.90)
[2020-10-14 04:55] LABS: Albumin, Blood 2.3 g/dL (3.4-5.0); Albumin/Globulin Ratio 0.8 (0.8-1.8); Bilirubin, Total 3.4 mg/dL (0.1-1.0); Bun/Creatinine Ratio 29.4 (12.0-20.0); Calcium, Blood 7.9 mg/dL (8.5-10.1); Creatinine, Blood 1.77 mg/dL (0.60-1.20); Magnesium, Blood 2.8 mg/dL (1.6-2.4); Phosphorus, Blood 3.2 mg/dL (2.5-4.9); Potassium, Blood 3.7 mmol/L (3.5-5.5); Total Protein, Blood 5.3 g/dL (6.4-8.2)
[2020-10-14 05:06] LABS: PCO2 Arterial 31.7 mmHg (35-45)
--- NOTE | 2020-10-14 06:20 | NUR ---
SHIFT SUMMARY NO ACUTE CHANGES DURING NOC. REMAINS INTUBATED- SAME VENT SETTINGS. PROPOFOL TITRATED DOWN AND OFF THIS AM AND THEN SBT DONE- SEE RT DOCUMENTATION. SEDATED WITH PROPOFOL BETWEEN 5-30MCG/KG/MIN DURING SHIFT- NOW INFUSING AT 20MCG/KG/MIN. ALSO MEDICATED WITH FENTANYL 50MCG IV X 1 FOR COMFORT AND WITH ATIVAN 2MG IV X 1 SEDATION ADJUNCT. VSS. REMAINS IN A-FLUTTER, RATE 70s-80s. CARDIZEM GTT HAS BEEN OFF SINCE 2014. OG WITH PIVOT 1.5 AT GOAL RATE OF 45CC/HR. VELÁZQUEZ PATENT AND DRAINING DARK KARSTEN URINE. HEPARIN GTT INFUSING AT 20UNITS/KG/HR PER PHARMACY. WILL REPORT TO ON COMING RN WHEN AVAILABLE.
--- NOTE | 2020-10-14 09:05 | NUR ---
ASSUMED CARE PT SITTING UP IN BED, INDEPENDENT, BP'S SOFT BUT ASSYMPTOMATIC, MAP ABOVE 65. 2L NC PLACED WHILE SLEEPING, BUT UNEEDED DURING THE DAY. HEMOGLOBIN STABLE FOR THE LAST 24 HOURS AND NO N/V/D SINCE 5AM YESTERDAY. WAITING FOR GI TO DECIDE IF SCOPING OR NOT. WILL CALL AND DISCUSS
--- NOTE | 2020-10-14 19:28 | NUR ---
ASSUMPTION OF CARE PT INTUBATED AND SEDATED, VENT SET TO AC 12/500 PEEP 5 FIO2 30%, PROPOFOL @ 10mcg/kg/min AND PRECEDEX @ 0.7mcg/kg/hr AT ASSUMPTION OF CARE. PT HYPOTENSIVE WITH SBP 70'S, PT MOVES ALL EXTREMETIES BUT DOES NOT FOLLOW DIRECTIONS, DOES NOT TRACK OBJECTS, NO CORNEAL REFLEX. PROPOFOL PLACED ON SB, PRECEDEX DECREASED TO 0.5mcg/kg/hr. DR SONG TO PTS ROOM, UPDATED ON PTS NEURO STATUS AND VITAL SIGNS. NEW ORDER FOR PHENYLEPHRINE. MONITOR SHOWS AFLUTTER WITH HR 80'S-90'S. HEPARIN INFUSING @ 20u/kg/hr (32ml/hr). VELÁZQUEZ IN PLACE WITH DARK YELLOW URINE OUTPUT. OG IN PLACE WITH TF @ GOAL RATE OF 35ml/hr. PICC LINE IN PLACE TO SHEKHAR.
--- NOTE | 2020-10-14 20:23 | NUR ---
PT RESPONDING TO VERBAL STIMULI, FOLLOWING SIMPLE COMMANDS, SHAKES HEAD YES/NO, DENIES PAIN OR DISCOMFORT AT THIS TIME. PROPOFOL REMAINS ON SB, PRECEDEX AT 0.5mcg/kg/hr. PHENYLEPHRINE @ 20mcg/min WITH SBP 90-100'S, MAPS 60'S-70'S.
--- NOTE | 2020-10-14 21:07 | NUR ---
UPDATED DR SONG ON PTS NEURO STATUS AND VITAL SIGNS, PT DENIES PAIN/DISCOMFORT BUT DOES OCCASSIONALLY PULL ON RESTRAINTS AND REACH FOR ETT. PLAN TO LIMIT PROPOFOL ADMINISTRATION MUCH POSSIBLE AND OKAY TO TITRATE PRECEDEX UP TO 1.4mcg/kg/hr FOR AGITATION/VENT TOLERANCE. PROPOFOL REMAINS ON SB, PRECEDEX AT 0.7mcg/kg/hr.
--- NOTE | 2020-10-15 01:07 | NUR ---
CALL PLACED TO DR BLAS REAGARDING PTS TEMPERATURE OF 101.1, NEW ORDER FOR TYLENOL.
--- NOTE | 2020-10-15 01:20 | NUR ---
TO PTS ROOM FOR ALARMING VENT, PT SITTING UP IN BED, PULLING AT RESTRAINTS, NOT FOLLOWING COMMANDS. MEDICATION WITH 2MG ATIVAN AND 50mcg FENTANYL. PT NOW RESTING COMFORTABLY. PRECEDEX REMAINS AT 1.2mcg/kg/hr, PROPOFOL OFF.
[2020-10-15 04:07] LABS: BASOPHILS ABSOLUTE AUTO 0.03 K/mm3 (0.00-0.23); BASOPHILS PERCENT AUTO 0 % (0-2); EOSINOPHILS PERCENT AUTO 5 % (0-6); Hematocrit 42.8 % (37.0-53.0); Hemoglobin 13.5 g/dL (13.5-17.5); IMMATURE GRAN ABSOLUTE AUTO 0.06 K/mm3 (0.00-0.10); IMMATURE GRAN PERCENT AUTO 1 % (0-1); LYMPHOCYTES ABSOLUTE AUTO 2.02 K/mm3 (0.84-5.20); LYMPHOCYTES PERCENT AUTO 19 % (21-46); MONOCYTES ABSOLUTE AUTO 1.25 K/mm3 (0.16-1.47); MONOCYTES PERCENT AUTO 12 % (4-13); Mean Corpuscular HGB 30.6 pg (26.0-34.0); Mean Corpuscular HGB Conc 31.5 g/dL (31.5-36.5); Mean Corpuscular Volume 97 fL (80-100); Mean Platelet Volume 11.6 fL (9.1-12.4); NEUTROPHILS ABSOLUTE AUTO 6.54 K/mm3 (1.96-9.15); NEUTROPHILS PERCENT AUTO 63 % (41-73); Platelet Count 128 K/mm3 (150-400); RDW Coefficient Variation 15.1 % (11.7-14.2); RDW Standard Deviation 52.8 fL (35.1-46.3); Red Blood Cell Count 4.41 M/mm3 (4.30-5.90)
--- NOTE | 2020-10-15 04:16 | NUR ---
FEVER PTS TEMPERATURE CONTINUES TO TREND UP, CURRENT TMAX 102.0, DESPITE TYLENOL ADMINISTRTAION, FAN AT BEDSIDE AND ICEPACKS TO AXILLARY AND NECK. PROPOFOL RESTARTED @ 10mcg/kg/hr, TITRATING PRECEDEX DOWN FOR POSSIBLE FEBRILE REACTION. PT CURRENLTY ALERT IN BED BUT NOT FOLLOWING COMMANDS.
[2020-10-15 04:34] LABS: Albumin, Blood 2.4 g/dL (3.4-5.0); Albumin/Globulin Ratio 0.6 (0.8-1.8); Bilirubin, Total 2.6 mg/dL (0.1-1.0); Bun/Creatinine Ratio 28.3 (12.0-20.0); Calcium, Blood 8.2 mg/dL (8.5-10.1); Creatinine, Blood 1.59 mg/dL (0.60-1.20); Globulin, Blood 3.9 g/dL (2.2-4.0); Magnesium, Blood 2.2 mg/dL (1.6-2.4); Phosphorus, Blood 3.6 mg/dL (2.5-4.9); Potassium, Blood 4.6 mmol/L (3.5-5.5); Total Protein, Blood 6.3 g/dL (6.4-8.2)
--- NOTE | 2020-10-15 06:03 | NUR ---
SHIFT SUMMARY PT REMAINS INTUBATED AND SEDATED, VENT SET TO AC 12/500 PEEP 5 FIO2 30%, SEE PREVIOUS NOTES REGARDING SEDATION. PROPOFOL CURRENTLY INFUSING @ 10mcg/kg/min, PRECEDEX ON SB, TEMPERATURE TRENDING DOWN, CURRENTLY 101.4. PTS NEURO STATUS FREQUENTLY FLUCTUATES, PT ALERT AND FOLLOWING COMMANDS AT TIMES, BUT UNRESPONSIVE TO VERBAL STIMULI AT OTHER TIMES. MONITOR SHOWS AFLUTTER WITH HR 80'S-90'S, PHENYLEPHRINE CONTINUES TO INFUSE TO MAINTAIN MAPS> 65, CURRENTLY INFUSING @ 30mcg/min. VELÁZQUEZ REMAINS IN PLACE WITH GOOD URINE OUTPUT.
--- NOTE | 2020-10-15 08:09 | NUR ---
ASSESSMENT- PT SEDATED WITH PROPOFOL GTT AT 10 MCG/KG/MIN. RESTLESS AT TIMES, OPENS EYES, BALLESTEROS BUT NO RESPONSE TO COMMANDS. ORALLY INTUBATED, TUBE SECURE, TOLERATING VENT SETTINGS. LUNGS CLEAR. AFLUTTER WITH RATE 80-90'S. HYPOTENSIVE. NEOSYNEPHRINE FOR BLOOD PRESSURE SUPPORT INCREASED FROM 30 TO 40 MCG/MIN WITH IMPROVEMENT. RIGHT ARM PICC DDI. NS TKO. HEPARIN GTT AT 20 UNITS/KG/HR. LAC SL INTACT. TUBE FEEDING VIA OGT PIVOT AT GOAL-RESIDUAL HIGH AT 325 CC-REPLACED ON TF ON HOLD. ABDOMEN SOFT. UO ADEQUATE VIA VELÁZQUEZ, URINE CLEAR ORANGE. REPOSITIONED FOR COMFORT. DOES REACH FOR TUBES, BILATERAL WRIST RESTRAINTS ON FOR SAFETY.
--- NOTE | 2020-10-15 09:22 | NUR ---
DR. SONG HERE-UDPATED WITH BLOOD PRESSURE, NEOSYNEPHRINE DOSE, TEMPERATURE, HOLDING LOPRESSOR, MENTAL STATUS.
--- NOTE | 2020-10-15 10:58 | NUR ---
DR. SONG AT BEDSIDE. PROPOFOL OFF. CPAP TRIAL, PS 10 PEEP 5 WITH TIDAL VOLUMES 400'S. ABLE TO OPEN EYES, SOME RESPONSE TO COMMANDS.
--- NOTE | 2020-10-15 11:55 | NUR ---
RX FOR RESTLESSNESS/AGITATION WITH FENTANYL WITH IMPROVEMENT. TOLERATING CPAP TRIAL. TUBE FEED ON HOLD-RESIDUAL 100 CC REPLACED, MAY EXTUBATE.
--- NOTE | 2020-10-15 12:31 | NUR ---
PT EXTUBATED TO NASAL CANNULA. AWAKE, ASKING FOR WATER AND DIANE -STATES IS HIS BROTHER. EXPLAINED PLAN OF CARE. NONPRODUCTIVE COUGH. SATURATIONS STABLE. NO WHEEZING. DR SONG AT BEDSIDE
--- NOTE | 2020-10-15 14:40 | NUR ---
MAINTAINING SATURATIONS. COOPERATIVE WITH REPOSITIONING, IS CONFUSED REGARDING WHERE HE IS. EXPLAINED PLAN OF CARE, REASSURANCE GIVEN. ENTIRE BACK VERY RED, WARM. LINEN CHANGE DONE, FAN ON. TEMP 100.8
--- NOTE | 2020-10-15 15:17 | NUR ---
CALLED PT'S MOM PER HIS REQUEST, UPDATE GIVEN. ALSO CALLED PT'S FRIEND ANGE PER MOM'S REQUEST WITH UPDATE.
--- NOTE | 2020-10-15 16:28 | NUR ---
VISITOR AT BEDSIDE TALKING WITH PT. PT ANGRY REGARDING NEED TO STAY IN HOSPITAL, CUSSING. EXPLAINED PLAN OF CARE. ATIVAN GIVEN FOR ANXIETY.
--- NOTE | 2020-10-15 17:40 | NUR ---
PT RESTLESS, ATTEMPTING TO GET UP. VERY WEAK. ATIVAN REPEATED WITH IMPROVEMENT OF ANXIETY. RX WITH FENTANYL. BP STABLE WITH NEOSYNEPHRINE AT 40 MCG/MIN. DR. SONG HERE-UPDATED. SHORT RUN VTACH, ASYMPTOMATIC.
--- NOTE | 2020-10-15 18:40 | NUR ---
DR. SONG HERE-UDPATED WITH RASH, VS, RESTLESSNESS. BENADRYL GIVEN. PTT RESULTS HIGH-QUESTION DRAW. FIRST AID DIRECTOR DID REDRAW PERIPHERALLY. PT WITH EYES OPEN, ABLE TO FOLLOW SOME DIRECTIONS. QUIET WHEN UNDISTURBED. DIURESING AFTER LASIX. PICC INTACT WITH NS TKO. NEOSYNEPHRINE ON HOLD. HEPARIN GTT AT 20 UNITS/KG/HR
--- NOTE | 2020-10-15 19:30 | NUR ---
ASSUMED PT CARE FROM ANABELLA MIRANDA AT 1915 PT LYING IN BED. ALERT TO SELF AND PLACE. DOESN'T ALWAYS RESPOND OR FOLLOWS DIRECTION. WHEN HE DOES RESPOND IT IS VERY SLOW. PT APPEARS VERY WITHDRAWN. UPWARD AND TO THE RIGHT GAZE, BUT WILL MAKE EYE CONTACT WHEN SPOKEN TO. AFLUTTER NOTED WITH RATE 100-110. BP'S STABLE WITH SYSTOLIC 120'S. ON ROOM AIR WITH OXYGEN SATURATIONS >90%. PT NOTED TO RASH NOTED TO BACK SIDE. IT STARTS FROM NECK DOWN TO BILATERAL THIGHS. PT WAS MEDICATED WITH BENADRYL PER ORDERS, WELL A LINEN CHANGE WAS PERFORMED. WILL PROVIDE A PARTIAL BATH TONIGHT IN ORDER TO DECREASE IRRITATION/ITCHING. DIFFICULT TO ASSESS LUNG SOUNDS D/T PT NOT FOLLOWING COMMANDS WITH TAKING IN DEEP BREATHS. VELÁZQUEZ CATHETER IS PATENT AND DRAINING CLEAR KARSTEN COLORED URINE. OBTAINED NEW ORDERS FROM DR. SONG FOR ARTIFICIAL TEAR DROPS TO BILATERAL EYES D/T DRYNESS/REDNESS. ALSO NEW ORDERS TO DISCONTINUE BENZO'S AND START ZYPREXA 5MG IM Q4 HOURS PRN. PT IS RESTING IN BED VERY RESTLESS AT THIS TIME. NOTED TO BE PICKING AT THINGS. HOWEVER, VERY COOPERATIVE WITH CARES. WILL CONTINUE TO MONITOR.
[2020-10-16 01:51] LABS: BASOPHILS ABSOLUTE AUTO 0.02 K/mm3 (0.00-0.23); BASOPHILS PERCENT AUTO 0 % (0-2); EOSINOPHILS ABSOLUTE AUTO 0.92 K/mm3 (0.00-0.68); EOSINOPHILS PERCENT AUTO 9 % (0-6); Hematocrit 44.5 % (37.0-53.0); Hemoglobin 14.1 g/dL (13.5-17.5); IMMATURE GRAN ABSOLUTE AUTO 0.03 K/mm3 (0.00-0.10); IMMATURE GRAN PERCENT AUTO 0 % (0-1); LYMPHOCYTES ABSOLUTE AUTO 1.99 K/mm3 (0.84-5.20); LYMPHOCYTES PERCENT AUTO 19 % (21-46); MONOCYTES ABSOLUTE AUTO 0.89 K/mm3 (0.16-1.47); MONOCYTES PERCENT AUTO 9 % (4-13); Mean Corpuscular HGB 30.3 pg (26.0-34.0); Mean Corpuscular HGB Conc 31.7 g/dL (31.5-36.5); Mean Corpuscular Volume 96 fL (80-100); NEUTROPHILS ABSOLUTE AUTO 6.48 K/mm3 (1.96-9.15); NEUTROPHILS PERCENT AUTO 63 % (41-73); Platelet Count 160 K/mm3 (150-400); RDW Coefficient Variation 14.8 % (11.7-14.2); RDW Standard Deviation 51.4 fL (35.1-46.3); Red Blood Cell Count 4.66 M/mm3 (4.30-5.90); White Blood Cell Count 10.33 K/mm3 (4.00-11.30)
[2020-10-16 02:09] LABS: International Normalized Ratio 1.32; Prothrombin Time Results 13.9 Sec (9.7-11.5)
[2020-10-16 02:38] LABS: Albumin, Blood 2.5 g/dL (3.4-5.0); Albumin/Globulin Ratio 0.7 (0.8-1.8); Bilirubin, Total 2.4 mg/dL (0.1-1.0); Bun/Creatinine Ratio 29.3 (12.0-20.0); Creatinine, Blood 1.33 mg/dL (0.60-1.20); Globulin, Blood 3.8 g/dL (2.2-4.0); Magnesium, Blood 1.8 mg/dL (1.6-2.4); Phosphorus, Blood 2.3 mg/dL (2.5-4.9); Potassium, Blood 3.2 mmol/L (3.5-5.5); Total Protein, Blood 6.3 g/dL (6.4-8.2)
--- NOTE | 2020-10-16 05:02 | NUR ---
END OF SHIFT SUMMARY PT HASN'T SLEPT ALL NIGHT. CONTINUES TO TRY AND EXIT BED. BED ALARM SET; BUT DIDN'T GO OFF UNTIL PT WAS ALMOST ALL THE WAY OUT. THEREFORE, DAVID VEST PLACED ON PT TO PREVENT POSSIBLE INJURY IN THE EVENT OF AN UNAVOIDABLE FALL. PT CONTINUED TO TRY TO GET OUT OF BED EVEN WITH DAVID ON. WOULD FIND HIM UP AGAINST THE SIDERAIL, SITTING UP, AND LEGS OVER THE SIDE. CALL PLACED TO DR. SONG FOR A SLEEP AID. ORDERS PLACED FOR ATIVAN 2MG IV NOW. PT IS RESTING IN BED LESS RESTLESS; HOWEVER, STILL AWAKE. BLOOD PRESSURES REMAIN STABLE, SEE FLOWSHEET. PT REMAINS IN AFLUTTER WITH HR 70-90'S. PT ABLE TO TOLERATE PO MEDICATIONS AND WAS GIVEN HIS 12.5MG DOSE OF LOPRESSOR PER ORDERS. PT REMAINS WITH SYSTEMIC RASH TO BACK SIDE AND DOWN TO POSTERIOR/BILATERAL THIGHS. VELÁZQUEZ CATHETER WITH LARGE AMOUNTS OF URINE OUTPUT THIS SHIFT, 5850CC OF URINE ACCOUNTED FOR. URINE STARTED OFF CLEAR AND YELLOW; HOWEVER, THE SHIFT HAS PROGRESSED URINE HAS STARTED BECOMING MORE RED/ORANGE WITH SEDIMENT NOTED. HEPARIN GTT CONTINUES AT 20 UNITS/KG/HR. WILL CONTINUE TO MONITOR UNTIL REPORT IS HANDED OFF TO ONCOMING RN.
--- NOTE | 2020-10-16 06:43 | NUR ---
VELÁZQUEZ CATHETER PT PULLED ON VELÁZQUEZ. VELÁZQUEZ WAS RESTING OUTSIDE OF STAT LOCK. MORE BLOOD NOTED IN TUBING. SCANT AMOUNT OF BLOOD CLEANED UP AROUND THE PENIS. PT WAS PLACED IN BILATERAL SOFT WRIST RESTRAINTS AT 0630 TO PREVENT FURTHER INJURY OR DISLODGEMENT OF VELÁZQUEZ CATHETER.
--- NOTE | 2020-10-16 08:29 | NUR ---
Receieved report from Luz KYLE. He is on RA and 93-94%. He is communicable but very slow and soft voice. He follows simple commands and is able to take intake and am meds. He has decent cough to clear airway. He has PICC line to MINERVA and dressing intact and site WNL's and is infusing K Phos at 126 ml/hr, Heparin at 20 units/kg/hr and NS TKO. He is in 120's a-flutter and systolics 140's. He has 16Fr Trujillo draining to gravity malik red urine post pulling at catheter, but still patent. He has jeremi and bilateral soft UE wrist restraints from pulling at lines and tubes. He is able to BALLESTEROS but weak and assist with repositioning.
--- NOTE | 2020-10-16 09:58 | NUR ---
Patient tolerated a little Cl Liq diet and continues to have good cough. He is still responsive to verbal stimuli and follows simple commands. He remains on RA and sats 96%. VSS, See EMR. Urine has cleared to light eunice post lasix. Dr Vigil by to se him and makes Med tele back hallway. He is on bedpan try to have BM
--- NOTE | 2020-10-16 12:10 | NUR ---
Patient trying to sit up in bed and states he wants to go home. After reasoniing with him he lays back down. he does not to be sleeping. VSS, See EMR. LE elevated. He continues ot put out about 3-500 ml's of urine an hour, eunice in color. repositions self in bed.
--- NOTE | 2020-10-16 14:16 | NUR ---
Patient has aked for bedpan several times without success. VSS, See EMR,. Heparin gtt DC'd snf he started to have return of some light malik red urine. KALEY tran weak. He does not seem to have slep[t much this shift. He tolerated about 50% of cl liq lunch.
--- NOTE | 2020-10-16 15:56 | NUR ---
Patient received full bath and linen change. He remains in a jeremi and wrist restraints and am going to try wrist restraints off. VSS, See EMR. He continues to have large amounts of urine output and talked with Dr Vigil and will give some fluid back. He MAEW but remains weak. He has not been trying to get out of bed. Tolerated fluids well.
--- NOTE | 2020-10-16 16:43 | NUR ---
daughter by at bedside. Vent settings AC 22, TV 470, FiO2 60% PEEP 5.0 and sats 94%. He continues on Propofol at 50 mcg/kg/min, Precedex at 0.5 mcg/kg/hr, NS TKO for ABX. He awakens to verbal Stimuli and follow simple directions. He has frequent coughing that needs ET suctioning and getting moderat amounts brown secretions.
[2020-10-16 16:50] LABS: Magnesium, Blood 1.5 mg/dL (1.6-2.4); Potassium, Blood 2.8 mmol/L (3.5-5.5)
--- NOTE | 2020-10-16 20:15 | NUR ---
ASSUMED PT CARE FROM ANABELLA HAMPTON PT RESTING IN BED. DAVID VEST REMAINS IN PLACE D/T PT BEING IMPULSIVE AT TIMES AND AT HIGH RISK FOR FALLS. PT IS STILL ABLE TO SHIFT WEIGHT IN BED. REMAINS VERY RESTLESS AND PICKING AT THINGS. HR IS 140'S WHEN RESTLESS, BUT WHILE RESTING HR IS ANYWHERE BETWEEN 100-120'S; AFLUTTER. BP'S STABLE, SEE FLOWSHEET. VELÁZQUEZ CATHETER IS PATENT AND DRAINING RED URINE TO GRAVITY. PT CHANGED FROM HEPARIN GTT TO XARELTO. POTASSIUM AND MAGNESIUM BEING REPLACED CURRENTLY. LR TO BE INFUSING AT 200MLS/HR X2 BAGS ONCE REPLACEMENTS ARE COMPELTED. PT IS SITTING UP IN BED EATING JELLO, PUDDING, AND YOGURT WITH AN ENSURE TO DRINK. PT TOLERATING WELL. MOTOR SKILLS ARE A LITTLE DELAYTED, BUT PT IS MANAGING. CALL LIGHT WITHIN REACH. WILL CONTINUE TO MONITOR.
--- NOTE | 2020-10-17 01:03 | NUR ---
UPDATE CALL OUT TO JOMAR IRVING REGARDING ELEVATED HR 140'S; IRREGULAR. PT IS NEGATIVE FLUID BALANCE. HAS LR INFUSING AT 200MLS/HR. BP'S, STABLE AT THIS TIME WITH SYSTOLICS OF 120'S. PT UNABLE TO SWALLOW 12.5MG PO LOPRESSOR D/T PT DROWSY AND UNSAFE TO SWALLOW. JOMAR IRVING GAVE ORDERS FOR IV 5MG OF LOPRESSOR X1 DOSE. HR NOW 110-130'S. STILL REMAINS AFLUTTER WITH LABILE HR.
[2020-10-17 03:28] LABS: BASOPHILS ABSOLUTE AUTO 0.03 K/mm3 (0.00-0.23); BASOPHILS PERCENT AUTO 0 % (0-2); EOSINOPHILS PERCENT AUTO 10 % (0-6); Hematocrit 45.4 % (37.0-53.0); Hemoglobin 14.5 g/dL (13.5-17.5); IMMATURE GRAN ABSOLUTE AUTO 0.04 K/mm3 (0.00-0.10); IMMATURE GRAN PERCENT AUTO 0 % (0-1); LYMPHOCYTES ABSOLUTE AUTO 1.68 K/mm3 (0.84-5.20); LYMPHOCYTES PERCENT AUTO 15 % (21-46); MONOCYTES ABSOLUTE AUTO 1.04 K/mm3 (0.16-1.47); MONOCYTES PERCENT AUTO 9 % (4-13); Mean Corpuscular HGB 30.3 pg (26.0-34.0); Mean Corpuscular HGB Conc 31.9 g/dL (31.5-36.5); Mean Corpuscular Volume 95 fL (80-100); Mean Platelet Volume 10.7 fL (9.1-12.4); NEUTROPHILS ABSOLUTE AUTO 7.58 K/mm3 (1.96-9.15); NEUTROPHILS PERCENT AUTO 66 % (41-73); Platelet Count 177 K/mm3 (150-400); RDW Coefficient Variation 14.4 % (11.7-14.2); RDW Standard Deviation 49.2 fL (35.1-46.3); Red Blood Cell Count 4.78 M/mm3 (4.30-5.90); White Blood Cell Count 11.47 K/mm3 (4.00-11.30)
[2020-10-17 03:52] LABS: Albumin, Blood 2.5 g/dL (3.4-5.0); Albumin/Globulin Ratio 0.6 (0.8-1.8); Alk Phos 72 U/L (50-136); Anion Gap 8 mmol/L (6-16); Aspartate Aminotrans (AST/SGOT 167 U/L (12-37); Bilirubin, Total 2.1 mg/dL (0.1-1.0); Blood Urea Nitrogen 28 mg/dL (8-24); Bun/Creatinine Ratio 22.4 (12.0-20.0); CO2, Blood 28 mmol/L (21-32); Calcium, Blood 8.6 mg/dL (8.5-10.1); Chloride, Blood 109 mmol/L (98-108); Creatinine, Blood 1.25 mg/dL (0.60-1.20); Globulin, Blood 3.9 g/dL (2.2-4.0); Glomerular Filtration Rate >60 (60-); Glucose, Blood 89 mg/dL (70-99); Phosphorus, Blood 2.6 mg/dL (2.5-4.9); Potassium, Blood 3.7 mmol/L (3.5-5.5); Sodium, Blood 145 mmol/L (136-145); Total Protein, Blood 6.4 g/dL (6.4-8.2)
[2020-10-17 04:02] LABS: Alanine Aminotransfer (ALT/SGP 1062 U/L (12-78)
--- NOTE | 2020-10-17 06:06 | NUR ---
END OF SHIFT SUMMARY PT HAS SLEPT MAJORITY OF SHIFT. VELÁZQUEZ CATHETER HAS BEEN REMOVED D/T DISCOMFORT AND PT CONTINUING TO PULL ON VELÁZQUEZ. BLOOD REMAINED TO URINE THAT WAS EMPTIED IN VELÁZQUEZ PRIOR TO REMOVAL, 800CC ACCOUNTED FOR. PT HAS YET TO VOID SINCE REMOVAL AT 0200. BP'S REMAIN STABLE. HR HAS REMAINED 110-120'S; AFLUTTER. PICC TO RIGHT UPPER ARM AND SALINE LOCKED AT THIS TIME. ATTENDS IN PLACE D/T LARGE INCONTINENT BOWEL MOVEMENT LAST NIGHT. PT WAS GIVEN A PARTIAL BATH WITH LINEN CHANGE PERFORMED. PT REMAINS IN DAVID VEST D/T IMPULSIVENESS AND HIGH FALL RISK. PT ATTEMPTED TO EXIT BED TWICE THIS SHIFT WITH LEGS OVER THE SIDERAILS. WILL CONTINUE TO MONITOR UNTIL REPORT IS HANDED OFF TO ONCOMING RN.
--- NOTE | 2020-10-17 18:20 | NUR ---
SHIFT SUMMARY: NO ACUTE CHANGES T/OUT SHIFT. PT CONTINUES ALERT AND ORIENTED, MAINTAINING O2 SATS >93% ON ROOM AIR, AFLUTTER ON MONITOR WITH RATE 105-120 BPM. PT HAS BEEN CALM AND COOPERATIVE WITH CARE, DAVID VEST REMOVED APPROX [phone], PT DOES NOT ATTEMPT TO EXIT BED, BED ALARM IN PLACE. RASH CONTINUES TO BACK/LEGS, PT BEING TREATED PER EMAR. PT VOIDS SMALL AMOUNT OF URINE POST VELÁZQUEZ DC. AT THIS TIME, PT RESTING QUIETLY IN BED. WILL CONTINUE TO MONITOR AND TREAT ACCORDINGLY UNTIL CHANGE OF SHIFT.
--- NOTE | 2020-10-17 19:15 | NUR ---
ASSUMED CARE OF PT, BEDSIDE REPORT RECEIVED. PT IS RESTING QUIETLY RECLINING IN BED AND WATCHING TV. DENIES NEEDS AT THIS TIME. CALL LIGHT IN REACH, BED ALARM CONFIRMED ARMED, HIGH FALL RISK INDICATOR LIGHT ON OVER PT DOORWAY.
[2020-10-18 04:23] LABS: BASOPHILS ABSOLUTE AUTO 0.02 K/mm3 (0.00-0.23); BASOPHILS PERCENT AUTO 0 % (0-2); EOSINOPHILS ABSOLUTE AUTO 1.28 K/mm3 (0.00-0.68); EOSINOPHILS PERCENT AUTO 11 % (0-6); Hemoglobin 13.3 g/dL (13.5-17.5); IMMATURE GRAN ABSOLUTE AUTO 0.05 K/mm3 (0.00-0.10); IMMATURE GRAN PERCENT AUTO 0 % (0-1); LYMPHOCYTES ABSOLUTE AUTO 2.25 K/mm3 (0.84-5.20); LYMPHOCYTES PERCENT AUTO 20 % (21-46); MONOCYTES ABSOLUTE AUTO 0.81 K/mm3 (0.16-1.47); MONOCYTES PERCENT AUTO 7 % (4-13); Mean Corpuscular HGB 30.1 pg (26.0-34.0); Mean Corpuscular HGB Conc 31.7 g/dL (31.5-36.5); Mean Corpuscular Volume 95 fL (80-100); Mean Platelet Volume 11.3 fL (9.1-12.4); NEUTROPHILS PERCENT AUTO 61 % (41-73); Platelet Count 182 K/mm3 (150-400); RDW Coefficient Variation 14.2 % (11.7-14.2); RDW Standard Deviation 49.4 fL (35.1-46.3); Red Blood Cell Count 4.42 M/mm3 (4.30-5.90); White Blood Cell Count 11.21 K/mm3 (4.00-11.30)
[2020-10-18 04:43] LABS: Albumin, Blood 2.4 g/dL (3.4-5.0); Albumin/Globulin Ratio 0.7 (0.8-1.8); Bilirubin, Total 1.6 mg/dL (0.1-1.0); Bun/Creatinine Ratio 26.3 (12.0-20.0); Calcium, Blood 8.6 mg/dL (8.5-10.1); Creatinine, Blood 1.33 mg/dL (0.60-1.20); Globulin, Blood 3.5 g/dL (2.2-4.0); Magnesium, Blood 1.8 mg/dL (1.6-2.4); Phosphorus, Blood 2.6 mg/dL (2.5-4.9); Potassium, Blood 3.9 mmol/L (3.5-5.5); Total Protein, Blood 5.9 g/dL (6.4-8.2)
--- NOTE | 2020-10-18 07:08 | NUR ---
PT AWAKE MOST OF THIS SHIFT, DENIES NAUSEA THROUGHOUT NOC, DENIES PAIN. HAS BEEN USING CALL LIGHT APPROPRIATELY TO MAKE NEEDS KNOWN. BED ALARM HAS ONLY BEEN TRIGGERED BY PT TURNING OVER IN BED WITH THE EXCEPTION OF SITTING AT EDGE OF BED ONCE. PT HAS DENIED ITCHING THROUGHOUT NOC IN REGARD TO RASH HOWEVER DID STATE THAT HE WAS HAVING INCREASED ANXIETY, BENADRYL WAS ORDERED INITIALLY PT REPORTS THAT THE RASH "FEELS JUST LIKE [place]" ANXIETY CONTINUED FOLLOWING BENADRYL ADMINISTRATION AND ATIVAN WAS ORDERED X 1, PT DID REPORT MARKED IMPROVEMENT IN ANXIETY FOLLOWING ADMINISTRATION HOWEVER EXPRESSES FRUSTRATION WITH CONTINUED INABILITY TO SLEEP THIS SHIFT. HEART RATE AT REST IS 90-110S HOWEVER DOES INCREASE TO 140S ON OCCASION WITH INCREASES IN ACTIVITY, RETURNS TO BASELINE WITHIN MINUTES OF RETURNING TO REST, PRESSURES HAVE MAINTAINED.
--- NOTE | 2020-10-18 07:30 | NUR ---
Receieved report from Corey KYLE. Patient awake when entering room and was able to communicate needs. His speech was clearand understandable. he is on Ra and sats >90%. He is independent in bed and is able to reposition self for comfort. He has urinal at bed side with 400ml dark brown urine. he has PICC line to KALEIGH, dressing intact and site WNL's and is flushed and SL'd. He has attaneds in place.
--- NOTE | 2020-10-18 09:30 | NUR ---
No significant changes with patient. PT worked with patient and is currently up in chair. He remains on RA and sats>90%. patient denies any current needs. he is just finishing up with breakfast and tolerating well.
--- NOTE | 2020-10-18 11:30 | NUR ---
No significant changes with patient. He got up from chair and transferred self to bed and is currently sleeping
--- NOTE | 2020-10-18 13:28 | NUR ---
Patient awake in bed watching TV. He deneis any needs. He wanted lunch held as he took a long time to eat breakfast. VSS, See EMR
--- NOTE | 2020-10-18 17:43 | NUR ---
ASSUMED CARE/SHIFT SUMMARY... ASSUMED CARE OF PT AT 1630, PT IS A&Ox4. PT IS CURRENTLY MEDICAL STATUS. PT HAS BEEN GETTING UP WITH SBA, WHEN HE DOES GET UP HIS HEART RATE INCREASES FROM THE 110'S-140'S. PT DOES C/O OF SOB WITH ACTIVITY PT'S O2 SATS DO NOT DROP DURING THESE TIMES OF SOB. PT'S OTHER VS STABLE DURING THESE HEART RATE INCREASES. PT HAS BEEN GETTING UP WITHOUT USING HIS CALL LIGHT AND PUT HIS PERSONAL PANTS ON. PT SEEMS TO BE GETTING INREASINGLY ANXIOUS THE EVENING PROGRESSES. CALL LIGHT IN REACH WILL CONTINUE TO MONTOR UNTIL REPORT IS GIVEN TO ONCOMING RN.
--- NOTE | 2020-10-18 19:02 | NUR ---
PT UPDATE... PT CAME OUT INTO THE RING AND SAT OUTSIDE OF ANOTHER PT'S ROOM, PT WAS FULLY DRESSING IN HIS OWN CLOTHES AND HAD REMOVED ALL OF THE TELE STICKERS. PT THEN STATED "I WANT TO GO HOME AND I'M LEAVING, GIVE ME THAT PAPER TO SIGN." THIS RN TOLD THE CHARGE NURSE AND CALLED THE PROVIDER. THIS RN OBTAINED THE AMA PAPER WORK AND FILLED IT OUT APPROPRIATELY. WHEN THE RISK VS BENEFITS WERE REVIWED WITH THE PT HE CHANGED HIS MIND ESPECIALLY WHEN MADE AWARE THAT HE WOULD NOT BE GETTING ANY NEW MEDICATIONS HE WAS ON CURRENTLY AT THE HOSPTIAL AND THAT HIS INSURANCE MAY NOT PAY FOR HIS HOSPTIAL STAY IF HE LEFT AGAINST MEDICAL ADVICE. PT VERBALIZED HIS UNDERSTANDING AND CHANGED HIS MIND FOR NOW TO STAY. WILL CONTINUE TO MONITOR.
--- NOTE | 2020-10-18 19:18 | NUR ---
PT UPDATE.... WHILE GIVING BEDSIDE REPORT ON THIS PT IT WAS NOTED BY THE ONCOMING RN RUTH THAT THE PT'S PICC LINE WAS LYING ON THE FLOOR NEXT TO HIS BED. IT WAS CONFIRMED THAT THE LENGHT OF THE PICC LINE ON THE FLOOR MATCHED THE LENGHT THAT WAS PLACED. THIS WAS REPORTED TO THE CHARGE NURSE AND DOCUMENTED.
--- NOTE | 2020-10-18 19:30 | NUR ---
ASSUMED CARE OF PT, BEDSIDE REPORT RECEIVED. PT REPORTS THAT HE FEELS GROUCHY AND THAT HE FEELS LIKE "WE'RE NOT DOING ANYTHING I CAN'T DO AT HOME" "I CAN'T SLEEP, I'M NOT GOING TO GET ANY SLEEP AGAIN TONIGHT" WILL DISCUSS ADDITIONAL SLEEP AID WITH HOSPITALIST, THIS IS DISCUSSED WITH PT AND HE STATES "THANK YOU, YOU'RE ALL RIGHT" DISCUSSED SIDE EFFECTS OF PO STEROIDS THAT WERE STARTED TODAY FOR PT'S RASH AND HE VERBALIZES RELIEF AT KNOWING WHY HE FEELS MORE "GROUCHY" THAN HE FEELS LIKE HE SHOULD BE FEELING. NO IV MEDICATIONS ARE ORDERED FOR PT AT THIS TIME AND HE DECLINES TO HAVE IV RESTARTED HOWEVER IF IV MEDICATIONS BECOME NECESSARY HE STATES THAT HE WOULD BE AGREEABLE TO HAVING AN IV INSERTED AT THAT TIME.
[2020-10-19 03:33] LABS: BASOPHILS ABSOLUTE AUTO 0.05 K/mm3 (0.00-0.23); BASOPHILS PERCENT AUTO 0 % (0-2); EOSINOPHILS ABSOLUTE AUTO 0.49 K/mm3 (0.00-0.68); EOSINOPHILS PERCENT AUTO 4 % (0-6); Hematocrit 45.1 % (37.0-53.0); Hemoglobin 14.2 g/dL (13.5-17.5); IMMATURE GRAN ABSOLUTE AUTO 0.03 K/mm3 (0.00-0.10); IMMATURE GRAN PERCENT AUTO 0 % (0-1); LYMPHOCYTES ABSOLUTE AUTO 2.76 K/mm3 (0.84-5.20); LYMPHOCYTES PERCENT AUTO 24 % (21-46); MONOCYTES ABSOLUTE AUTO 0.86 K/mm3 (0.16-1.47); MONOCYTES PERCENT AUTO 7 % (4-13); Mean Corpuscular HGB Conc 31.5 g/dL (31.5-36.5); Mean Corpuscular Volume 95 fL (80-100); Mean Platelet Volume 11.1 fL (9.1-12.4); NEUTROPHILS ABSOLUTE AUTO 7.51 K/mm3 (1.96-9.15); NEUTROPHILS PERCENT AUTO 64 % (41-73); Platelet Count 202 K/mm3 (150-400); RDW Coefficient Variation 14.1 % (11.7-14.2); RDW Standard Deviation 48.9 fL (35.1-46.3); Red Blood Cell Count 4.73 M/mm3 (4.30-5.90)
[2020-10-19 03:53] LABS: Alanine Aminotransfer (ALT/SGP 622 U/L (12-78); Albumin, Blood 2.7 g/dL (3.4-5.0); Albumin/Globulin Ratio 0.7 (0.8-1.8); Alk Phos 70 U/L (50-136); Anion Gap 6 mmol/L (6-16); Aspartate Aminotrans (AST/SGOT 58 U/L (12-37); Bilirubin, Total 1.1 mg/dL (0.1-1.0); Blood Urea Nitrogen 39 mg/dL (8-24); Bun/Creatinine Ratio 35.8 (12.0-20.0); CO2, Blood 24 mmol/L (21-32); Chloride, Blood 110 mmol/L (98-108); Creatinine, Blood 1.09 mg/dL (0.60-1.20); Globulin, Blood 3.9 g/dL (2.2-4.0); Glomerular Filtration Rate >60 (60-); Glucose, Blood 98 mg/dL (70-99); Magnesium, Blood 1.9 mg/dL (1.6-2.4); Phosphorus, Blood 2.8 mg/dL (2.5-4.9); Potassium, Blood 4.3 mmol/L (3.5-5.5); Sodium, Blood 140 mmol/L (136-145); Total Protein, Blood 6.6 g/dL (6.4-8.2)
--- NOTE | 2020-10-19 06:22 | NUR ---
PT C/O LACK OF SLEEP THIS SHIFT, BENADRYL 50 MG PO, ZYPREXA 10 MG PO, AMBIEN 5 MG PO ATTEMPTED FOR SLEEP, PT DENIES FALLING ASLEEP AT ANY TIME THIS SHIFT, STATES THAT "THAT BED IS TORTURE" HE REQUESTS TO LEAVE AMA AGAIN AT THIS TIME, DISCUSSED REASONS FOR WANTING TO LEAVE AMA WELL RISKS OF LEAVING PRIOR TO DISCHARGE. DISCUSSED THAT PLAN PER DR ELIZONDO'S PROGRESS NOTE IS TO DISCHARGE PT THIS AM. PT EXPRESSES HIGH ANXIETY AT THIS TIME AND REPORTS THAT HE CAN'T STAY SECONDARY TO ANXIETY. DISCUSSED OPTIONS FOR CONTROL OF ANXIETY WITH PT, CALL PLACED TO DR WATT, HOSPITALIST SET KEY DRIVER, XANAX ORDERED FOR NOW, WILL ADMINISTER WHEN AVAILABLE FROM PHARMACY AND PT IS AGREEABLE TO THIS AT THIS TIME.
--- NOTE | 2020-10-19 08:10 | NUR ---
ASSUMED CARE OF PT PT WAS NOTED TO BE RESTING IN BED, BREATHING FAST. PT REPORTS FEELING ANXIOUS. PT WAS DISCONNECTED FROM HEART MONITOR AND REFUSED TO BE RECONNECTED OR HAVE VITALS TAYLOR. ISTRATE CALLED AND INFORMED STAFF THAT PT WILL BE DISCHARGED AFTER HE'S ABLE TO SEE PT THIS MORNING. PT UP IN CHAIR EATING BREAKFAST. PT HAS RASH ACROSS BACK/CHEST/ARMS. INFORMED PT ON PLANNED DISCHARGE AND THAT DR WILL BE BY TO SEE HIM.
[2020-10-19] MEDS ORDERED: ACET325UDC PO ×2 (09:29)
[2020-10-19] MEDS ORDERED: AMOCLA875 PO ×2 (09:30)
[2020-10-19] MEDS ORDERED: Benadryl Itch28.3 G1 TOP ×2 (09:30)
[2020-10-19] MEDS ORDERED: METO25 PO ×2 (09:31)
[2020-10-19] MEDS ORDERED: OLAN10 PO ×2 (09:31)
[2020-10-19] MEDS ORDERED: PRED20 PO ×2 (09:36)
[2020-10-19] MEDS ORDERED: XARELTO20 MG PO ×2 (09:36)
[2020-10-19] MEDS ORDERED: ARTIFICIAL TEAR15 M2 BOTHEYES ×2 (09:36)
[2020-10-19] MEDS ORDERED: VISBIOME 112.51 EACH PO ×2 (09:37)
--- NOTE | 2020-10-19 10:47 | NUR ---
DISCHARGE INSTRUCTIONS GONE OVER WITH PT. INSTRUCTED PT ON NEW MEDICATIONS, WHEN TO TAKE THEM NEXT AND WHICH PHARMACY TO PICK THEM UP AT. CONFIRMED WITH PT THAT HE STILL WANTED TO DISCHARGE, DISPITE HIM BREATHING FAST AND REFUSING TO BE ON THE HEART MONITOR. PT STATED HE WANTED TO LEAVE. INSTRUCTED PT ON FOLLOW UP CARE. [facility] CONFIRMED THAT THEY WILL CALL PT FOR FOLLOW UP APPOINTMENT/NEW PT VISIT. BELONGINGS GATHERED AND GIVEN TO PT. PT ESCORTED OUT TO AWAITING TAXI VIA WHEELCHAIR.
== END 2020-10-19 10:50 | disposition home or self-care (01) | DRG 871 ==
LOC: ER 18:34 → ICUW 23:13
PROVIDERS: Emergency Medicine; Family Medicine; Internal Medicine Critical Care Medicine; Physician Assistant; Student in an Organized Health Care Education/Training Program; ADMIT Internal Medicine
PROC: 0BH17EZ Insertion of Endotracheal Airway into Trachea, Via Natural or Artificial Opening (ICD-10-PCS; principal; 2020-10-11)
PROC: 5A1945Z Respiratory Ventilation, 24-96 Consecutive Hours (ICD-10-PCS; 2020-10-11)
DX: A41.9 Sepsis, unspecified organism (principal); J18.9 Pneumonia, unspecified organism; R65.21 Severe sepsis with septic shock; G93.41 Metabolic encephalopathy; J96.01 Acute respiratory failure with hypoxia; I21.4 Non-ST elevation (NSTEMI) myocardial infarction; I50.21 Acute systolic (congestive) heart failure; I50.23 Acute on chronic systolic (congestive) heart failure; G92 Toxic encephalopathy; N17.0 Acute kidney failure with tubular necrosis; E87.0 Hyperosmolality and hypernatremia; I48.19 Other persistent atrial fibrillation; I13.0 Hypertensive heart and chronic kidney disease with heart failure and stage 1 through stage 4 chronic kidney disease, or unspecified chronic kidney disease; D68.9 Coagulation defect, unspecified; E87.2 Acidosis; E87.6 Hypokalemia; E83.39 Other disorders of phosphorus metabolism; R91.8 Other nonspecific abnormal finding of lung field; F19.10 Other psychoactive substance abuse, uncomplicated; N18.30 Chronic kidney disease, stage 3 unspecified; K72.90 Hepatic failure, unspecified without coma; D69.6 Thrombocytopenia, unspecified; D63.1 Anemia in chronic kidney disease
CPT/HCPCS: 0241U; 31500; 36415; 36569; 36600; 51702; 70450; 71045; 71260; 74177; 76705; 80053; 81001; 82140; 82330; 82550; 82803; 83605; 83690; 83735; 83880; 84100; 84132; 84484; 85025; 85610; 85730; 87040; 87070; 87086; 87205; 93005; 93010; 93308; 93321; 94002; 94003; 94640; 94660; 96365-59; 96367-59; 96375-59; 99285-25; A9270; C1751; C9113; J0610; J1200; J1644; J1940; J2060; J2250; J2370; J2543; J2704; J3010; J3370; J3475; J3480; J7030; J7040; J7050; J7060; J7070; J7120; J7512; Q9967

== ENCOUNTER 2020-10-21 18:17 | Emergency (ER) | payer OTHER ==
[~2020-10-21] VITALS: Ht 182.9 cm; Wt 73.5 kg
[~2020-10-21 18:17] MED LIST changes: +ACET325UDC PO; +AMOCLA875 PO; +ARTIFICIAL TEAR15 M2 BOTHEYES; +Benadryl Itch28.3 G1 TOP; +METO25 PO; +OLAN10 PO; +PRED20 PO; +VISBIOME 112.51 EACH PO; +XARELTO20 MG PO
[2020-10-21] MEDS ORDERED: ALBU90OI INH (18:34)
== END 2020-10-21 18:36 | disposition home or self-care (01) ==
LOC: ER 18:17
DX: Z76.0 Encounter for issue of repeat prescription (principal); Z79.899 Other long term (current) drug therapy
CPT/HCPCS: 99281

== ENCOUNTER 2020-10-30 03:48 | Inpatient (IN) | payer OTHER ==
[~2020-10-30] VITALS: Ht 182.9 cm; Wt 82.3 kg
[2020-10-30 04:05] LABS: Calcium, Ionized (POC) 1.22 mmol/L (1.10-1.46); Chloride (POC) 109 mmol/L (98-108); Creatinine (POC) 2.3 mg/dL (0.8-1.3); Glucose (ISTAT POC) 35 mg/dL (70-99); Potassium (POC) 5.4 mmol/L (3.5-5.5); Sodium (POC) 137 mmol/L (135-148); Total CO2 (POC) 19 mmol/L (21-32)
[2020-10-30 04:10] LABS: Source, Urine Catheter
[2020-10-30 04:12] LABS: Appearance, Urine Clear (Clear); Blood, Urine 1+ (Neg); Color, Urine Amber (P-Yellow); Glucose Qualitative, Urine Neg (Neg); Ketones, Urine 1+ (Neg); Leukocyte Esterase, Urine 1+ (Neg); Nitrite, Urine Neg (Neg); Protein, Urine 3+ (Neg); Specific Gravity, Urine 1.025 (1.003-1.022); Urobilinogen, Urine 3+ (Normal)
[2020-10-30 04:12] LABS: BASOPHILS ABSOLUTE AUTO 0.05 K/mm3 (0.00-0.23); BASOPHILS PERCENT AUTO 0 % (0-2); EOSINOPHILS ABSOLUTE AUTO 0.01 K/mm3 (0.00-0.68); EOSINOPHILS PERCENT AUTO 0 % (0-6); Hematocrit 44.6 % (37.0-53.0); Hemoglobin 13.8 g/dL (13.5-17.5); IMMATURE GRAN ABSOLUTE AUTO 0.19 K/mm3 (0.00-0.10); IMMATURE GRAN PERCENT AUTO 1 % (0-1); LYMPHOCYTES PERCENT AUTO 15 % (21-46); MONOCYTES ABSOLUTE AUTO 1.66 K/mm3 (0.16-1.47); MONOCYTES PERCENT AUTO 9 % (4-13); Mean Corpuscular HGB 30.1 pg (26.0-34.0); Mean Corpuscular HGB Conc 30.9 g/dL (31.5-36.5); Mean Corpuscular Volume 97 fL (80-100); Mean Platelet Volume 10.5 fL (9.1-12.4); NEUTROPHILS ABSOLUTE AUTO 13.39 K/mm3 (1.96-9.15); NEUTROPHILS PERCENT AUTO 74 % (41-73); Platelet Count 310 K/mm3 (150-400); RDW Coefficient Variation 16.1 % (11.7-14.2); RDW Standard Deviation 55.6 fL (35.1-46.3); Red Blood Cell Count 4.59 M/mm3 (4.30-5.90)
[2020-10-30 04:16] LABS: Bilirubin, Urine 1+ (Neg)
[2020-10-30 04:18] LABS: PCO2 Arterial 29.9 mmHg (35-45); PO2 Arterial 129 mmHg (80-100); pH Blood Arterial 7.23 (7.35-7.45)
[2020-10-30 04:20] LABS: Amorphous Mod (0-Heavy); Bacteria Few /hpf; Hyaline Casts 25-50 /lpf (0-2); Mucus Light (0-Heavy); Red Blood Cells, Urine 0-2 /hpf (0-2); Squamous Epithelial Cells Not Seen /hpf (Few)
[2020-10-30 04:23] LABS: U Amphetamine Screen DETECTED; U Barbituate Screen Not Detected; U Benzodiazapine Screen Not Detected; U Buprenorphine Screen Not Detected; U Cannabinoids Screen DETECTED; U Cocaine Screen Not Detected; U Methadone Screen Not Detected; U Methamphetamine Screen DETECTED; U Opiates Screen Not Detected; U Oxycodone Screen Not Detected; U Phencyclidine Screen Not Detected; U Propoxyphene Screen Not Detected
[2020-10-30 04:28] LABS: Ethanol (Alcohol), Blood, Med <3 mg/dL; Troponin I 0.117 ng/mL (0.000-0.040)
[2020-10-30 04:42] LABS: Acetaminophen, Random <2.0 ug/mL (10.0-30.0); Alanine Aminotransfer (ALT/SGP 763 U/L (12-78); Albumin, Blood 3.1 g/dL (3.4-5.0); Albumin/Globulin Ratio 0.8 (0.8-1.8); Alk Phos 92 U/L (50-136); Anion Gap 13 mmol/L (6-16); Aspartate Aminotrans (AST/SGOT 1074 U/L (12-37); Blood Urea Nitrogen 35 mg/dL (8-24); Bun/Creatinine Ratio 18.9 (12.0-20.0); CO2, Blood 16 mmol/L (21-32); Chloride, Blood 108 mmol/L (98-108); Creatinine, Blood 1.85 mg/dL (0.60-1.20); Globulin, Blood 4.1 g/dL (2.2-4.0); Glomerular Filtration Rate 40 (60-); Glucose, Blood 32 mg/dL (70-99); Potassium, Blood 5.3 mmol/L (3.5-5.5); Salicylate <1.7 mg/dL (2.8-20.0); Sodium, Blood 137 mmol/L (136-145); Total Protein, Blood 7.2 g/dL (6.4-8.2)
--- NOTE | 2020-10-30 07:58 | NUR ---
SHIFT SUMMARY PATIENT ARRIVED TO ICU @ 05:45. AFTER PLACING ON MONITOR AND IN BILAT RESTRAINTS, STARTED BICARB DRIP @ 75 ML/HR, OBTAINED CBG (73, NO INTERVENTION AT THIS TIME BICARB IS IN D5.) PT. NOT FOLLOWING ANY COMMANDS WHEN ASKED, BUT DID START COUGHING/GAGGING ETT, INCREASED PROPOFOL, BP LOW, LOWERED PROPOFOL TO 15. REPORT GIVEN TO ANABELLA ARRIOLA.
--- NOTE | 2020-10-30 08:42 | NUR ---
ASSUMED CARE OF PT, REPORT RCV'D FROM ANABELLA PEREZ. PT INTUBATED AND SEDATED. VENT SETTINGS AC 16/500/5/35%. SEDATED WITH PROPOFOL 25 MCG/KG/MIN. PT WITHDRAWS FROM PAINFUL STIMULI, TURNS HEAD AWAY FROM ORAL CARE. MOVES ALL EXTREMETIES. PUPILS 1 MM, BRISK. SODIUM BICARB @ 75 ML/HR. TEMP VELÁZQUEZ PATENT AND DRAINING TO GRAVITY. Q1 CBG'S UNTIL STABLE GREATER THAN 100X3. VSS AT THIS TIME. SEE FULL SHIFT ASSESSMENT.
[2020-10-30 10:17] LABS: Base Excess Venous -9.7 mmol/L; Bicarbonate Venous 17.3 mmol/L (24.0-30.0); PCO2 Venous 32.9 mmHg (38-42); PO2 Venous 55.3 mmHg (38-42); pH Blood Venous 7.31 (7.34-7.37)
--- NOTE | 2020-10-30 12:04 | NUR ---
PIVOT 1.5 CONTINUOUS TUBE FEEDING INITIATED AT 25MLS/HR WITH GOAL OF 35ML/HR. 30ML Q4 FLUSH.
[2020-10-30 15:59] LABS: International Normalized Ratio 2.12; Prothrombin Time Results 21.7 Sec (9.7-11.5)
--- NOTE | 2020-10-30 18:06 | NUR ---
SHIFT SUMMARY PT REMAINS INTUBATED AND SEDATED. VENT SETTINGS AC 16/500/5/30%. PT LIGHTLY SEDATED WITH PROPOFOL @ 30 MCG/KG/MIN. PT OPENS EYES TO VERBAL STIMULUS, PT FAILS TO FOLLOW COMMANDS. BLOOD SUGARS CONSISTENTLY OVER 100 THIS SHIFT. PIVOT 1.5 INFUSING AT 25 ML HR, 60 ML RESIDUALS REFED. 700ML KARSTEN URINARY OUTPUT. TMAX 99.9. PT OCCASIONALLY HYPOTENSIVE, MAPS MAINTAINED>65, PER DR. LEROY [place] TO START LEVOPHED PERIPHERALLY IF NEEDED. WILL REPORT TO ONCOMING NURSE. REVIEWED [employer] DOCUMENTATION AND AGREE
--- NOTE | 2020-10-31 00:55 | NUR ---
ASSUMPTION OF CARE REPORT RECEIVED FROM ANABELLA ARRIOLA. PT INTUBATED AND SEDATED. PROPOFOL INFUSING AT 30 MCG AND NS TKO. TF RUNNING AT 25ML WITH 30 Q4H WATER FLUSHES. VELÁZQUEZ PATENT AND DRAINING TO GRAVITY. PT NOT OBEYING COMMANDS, CLOSES MOUTH WHEN ATTEMPTING TO DO ORAL CARE. BED RAILS UP X3 FOR SAFETY, RESTRAINTS IN PLACE AND ASSESSED PER CHART.
[2020-10-31 04:57] LABS: BASOPHILS ABSOLUTE AUTO 0.05 K/mm3 (0.00-0.23); BASOPHILS PERCENT AUTO 0 % (0-2); EOSINOPHILS ABSOLUTE AUTO 0.17 K/mm3 (0.00-0.68); EOSINOPHILS PERCENT AUTO 1 % (0-6); Hematocrit 41.6 % (37.0-53.0); Hemoglobin 13.1 g/dL (13.5-17.5); IMMATURE GRAN ABSOLUTE AUTO 0.07 K/mm3 (0.00-0.10); IMMATURE GRAN PERCENT AUTO 1 % (0-1); LYMPHOCYTES ABSOLUTE AUTO 2.92 K/mm3 (0.84-5.20); LYMPHOCYTES PERCENT AUTO 22 % (21-46); MONOCYTES ABSOLUTE AUTO 0.94 K/mm3 (0.16-1.47); MONOCYTES PERCENT AUTO 7 % (4-13); Mean Corpuscular HGB 30.2 pg (26.0-34.0); Mean Corpuscular HGB Conc 31.5 g/dL (31.5-36.5); Mean Corpuscular Volume 96 fL (80-100); Mean Platelet Volume 10.3 fL (9.1-12.4); NEUTROPHILS ABSOLUTE AUTO 9.32 K/mm3 (1.96-9.15); NEUTROPHILS PERCENT AUTO 69 % (41-73); Platelet Count 216 K/mm3 (150-400); RDW Coefficient Variation 16.3 % (11.7-14.2); RDW Standard Deviation 55.1 fL (35.1-46.3); Red Blood Cell Count 4.34 M/mm3 (4.30-5.90); White Blood Cell Count 13.47 K/mm3 (4.00-11.30)
[2020-10-31 05:12] LABS: International Normalized Ratio 1.95; Prothrombin Time Results 20.1 Sec (9.7-11.5)
[2020-10-31 05:29] LABS: Base Excess Venous -4.2 mmol/L; Bicarbonate Venous 21.5 mmol/L (24.0-30.0); PCO2 Venous 33.8 mmHg (38-42); PO2 Venous 67.5 mmHg (38-42)
[2020-10-31 05:32] LABS: Albumin, Blood 2.3 g/dL (3.4-5.0); Albumin/Globulin Ratio 0.7 (0.8-1.8); Bilirubin, Total 2.2 mg/dL (0.1-1.0); Bun/Creatinine Ratio 27.7 (12.0-20.0); Calcium, Blood 8.4 mg/dL (8.5-10.1); Creatinine, Blood 1.88 mg/dL (0.60-1.20); Globulin, Blood 3.2 g/dL (2.2-4.0); Magnesium, Blood 1.9 mg/dL (1.6-2.4); Phosphorus, Blood 3.5 mg/dL (2.5-4.9); Potassium, Blood 3.8 mmol/L (3.5-5.5); Total Protein, Blood 5.5 g/dL (6.4-8.2)
--- NOTE | 2020-10-31 06:40 | NUR ---
SHIFT SUMMARY PT REMAINED INTUBATED AND SEDATED, VENT SETTINGS AC 16/500/5/30%. PROPOFOL INFUSING AT 35MCG AND NS TKO. TF IS RUNNING AT GOAL RATE OF 35 WITH 30 Q4H WATER FLUSHES. VELÁZQUEZ PATENT AND DRAINING TO GRAVITY. PT FOLLOWING COMMANDS WHEN PROPOFOL DECREASED TO 25MCG; FOLLOWS COMMANDS AND ATTEMPTS TO TONGUE ETT OUT.
--- NOTE | 2020-10-31 09:39 | NUR ---
AM NOTE... PT IS ONLY LIGHTY SEDATED AND WILL AROUSE EASILY WITH STIMULATION. PT VSS. PT REMAINS RESTRAINED FOR SAFETY. TOLERATING T.F. WITH ONLY 20 ML RESIDUAL. AT THIS POINT PT PROPOFOL IS BEING STOPPED FOR SBT IN ANTICIPATION OF EXTUBATION PER DR LUDWIG ORDER. LUNGS ARE CLEAR T/O AND ONLY SCANT SECREATIONS.
--- NOTE | 2020-10-31 10:26 | NUR ---
1009 PT EXTUBATED TO 3L NC. PT WILL RANDOMLY FOLLOW SOME SIMPLE REQUESTS TO BASTING CLEANER HAND BUT YET INCONSISTANT. PT SPO2 AT 100% AND IN NO DISTRESS. PT HAS PRODUCTIVE COUGH AND IS CLEARING THROAT. PT COULD BE IN A-FLUTTER. RESTRAINTS TO RAMAIN ON FOR NOW DUE TO PT SAFETY CONSERNS. WILL FOLLOW.
--- NOTE | 2020-10-31 13:10 | NUR ---
PT CONT TO BE RESTRAINED AND RESTING QUIETLY WITH LIMITED INTERMITENT VERBAL INTERACTION. PT CONT. TO BE RESTRAINED FOR SAFETY AND WILL ASSESS FOR POTENTIAL TO D/C CARMINE.
--- NOTE | 2020-10-31 16:43 | NUR ---
pt extremeties cool and changed to toe probe with noted spo2 reading.
--- NOTE | 2020-10-31 18:01 | NUR ---
PT CONT IN NO RESP DISTRESS. SLEEPING CURRENTLY. VSS. I/O NOTED. O2 REMAINS AT 4L AND RR 16-20. PT HAS BEEN CALM AND COOPERATIVE. URINE IS QUITE HAZY. PT IS PO W/O DISTRESS.
--- NOTE | 2020-10-31 18:53 | NUR ---
PT NOTED TO HAVE HR 145. ON ENTERING ROOM O2 WAS OFF. RR 18-20 AND BP STABLE. AFTER VIEWING FOR FEW MINUTES ON O2 HR REMAINED 140-145. CALLED FOR STATUS REPORT AND MED ORDER.
--- NOTE | 2020-10-31 19:30 | NUR ---
ASSUMED CARE OF PT, REPORT RECEIVED. PT IS NOTED RESTING QUIETLY RECLINING IN BED, SATS MAINTAINING WITH OXYGEN VIA NASAL CANNULA AT 4 L/MIN HOWEVER HAVE MAINTAINED AT 100% THROUGHOUT REPORT SO THIS IS DECREASED TO 3 L/MIN, WILL MONITOR. LUNGS ARE CLEAR WITH DIM BASES BILAT, STRONG OCCASIONAL COUGH IS NOTED, PT STATES THAT HIS BREATHING CURRENTLY FEELS "GREAT" HE IS ALERT AND ORIENTED TO PERSON AND SURROUNDINGS HOWEVER STATES THE YEAR 1965 AND IS UNABLE TO STATE MONTH OR DAY BUT DOES STATE THAT HE CAME INTO THE HOSPITAL "BECAUSE I COULDN'T BREATHE" AFLUTTER NOTED ON MONITOR, RATE AT REST IS 110S, INCREASES TO 140S WITH INCREASE IN ACTIVITY BUT QUICKLY RETURNS TO BASELINE WITH RETURN TO REST. PRESSURES SOFT BUT MAINTAINING. SKIN PWD, BRISK CAP REFILL, MILD EDEMA NOTED TO FINGERS AND ANKLES BILAT. HYPOACTIVE BOWEL TONES NOTED, ABD SOFT, NO GRIMACING WITH PALPATION. TEMP PROBE VELÁZQUEZ IN PLACE DRAINING KARSTEN URINE WITH SEDIMENT, WILL MONITOR.
[2020-11-01 03:41] LABS: BASOPHILS ABSOLUTE AUTO 0.03 K/mm3 (0.00-0.23); BASOPHILS PERCENT AUTO 0 % (0-2); EOSINOPHILS ABSOLUTE AUTO 0.19 K/mm3 (0.00-0.68); EOSINOPHILS PERCENT AUTO 2 % (0-6); Hematocrit 40.9 % (37.0-53.0); Hemoglobin 13.2 g/dL (13.5-17.5); IMMATURE GRAN ABSOLUTE AUTO 0.06 K/mm3 (0.00-0.10); IMMATURE GRAN PERCENT AUTO 1 % (0-1); LYMPHOCYTES ABSOLUTE AUTO 2.13 K/mm3 (0.84-5.20); LYMPHOCYTES PERCENT AUTO 16 % (21-46); MONOCYTES ABSOLUTE AUTO 1.28 K/mm3 (0.16-1.47); MONOCYTES PERCENT AUTO 10 % (4-13); Mean Corpuscular HGB 30.9 pg (26.0-34.0); Mean Corpuscular HGB Conc 32.3 g/dL (31.5-36.5); Mean Corpuscular Volume 96 fL (80-100); Mean Platelet Volume 10.8 fL (9.1-12.4); NEUTROPHILS ABSOLUTE AUTO 9.26 K/mm3 (1.96-9.15); NEUTROPHILS PERCENT AUTO 72 % (41-73); Platelet Count 186 K/mm3 (150-400); RDW Coefficient Variation 16.4 % (11.7-14.2); RDW Standard Deviation 54.8 fL (35.1-46.3); Red Blood Cell Count 4.27 M/mm3 (4.30-5.90); White Blood Cell Count 12.95 K/mm3 (4.00-11.30)
[2020-11-01 04:05] LABS: Albumin, Blood 2.2 g/dL (3.4-5.0); Albumin/Globulin Ratio 0.7 (0.8-1.8); Bun/Creatinine Ratio 31.1 (12.0-20.0); Calcium, Blood 8.1 mg/dL (8.5-10.1); Creatinine, Blood 1.35 mg/dL (0.60-1.20); Globulin, Blood 3.2 g/dL (2.2-4.0); Magnesium, Blood 1.7 mg/dL (1.6-2.4); Phosphorus, Blood 2.4 mg/dL (2.5-4.9); Potassium, Blood 3.5 mmol/L (3.5-5.5); Total Protein, Blood 5.4 g/dL (6.4-8.2)
--- NOTE | 2020-11-01 05:45 | NUR ---
PT RESTS QUIETLY THROUGHOUT SHIFT, MENTATION HAS IMPROVED IN THAT PT CAN NOW STATE LOCATION, CIRCUMSTANCE, AND YEAR, HE REMAINS UNABLE TO STATE THE MONTH OR DAY. CALL LIGHT HAS REMAINED IN REACH HOWEVER PT HAS NOT USED IT THIS SHIFT PREFERRING INSTEAD TO CALL TO THIS RN. HE DOES ADMIT TO HAVING A SORE THROAT BUT HAS USED POPSICLES AND ICE CREAM TO SOOTH THROAT PAIN, THIS HAS PROVIDED ACCEPTABLE RELIEF THIS SHIFT. HE DOES TURN AND REPOSITION SELF FREQUENTLY AND WELL. HEART RATE HAS IMPROVED WITH PO METOPROLOL PER ORDERS, PRESSURES HAVE MAINTAINED. SATS REMAIN HIGH 90S ON ROOM AIR WHEN PT IS AWAKE, OXYGEN VIA NASAL CANNULA AT 2 L/MIN WITH SLEEP PT IS NOTED TO HAVE SATS DECREASE TO 87-88% INTERMITTENTLY WITH SLEEP. STRONG OCCASIONAL COUGH CONTINUES, NO SPUTUM OF THIS TIME, LUNG SOUNDS CONTINUE WITH DIM BASES BILAT, CLEAR OTHERWISE. PT CONTINUES TOLERATING REGULAR DIET WELL AND INTERMITTENTLY ASKS FOR NUTRITIONAL SUPPLEMENT SHAKES.
[2020-11-01 06:04] LABS: International Normalized Ratio 2.11; Prothrombin Time Results 21.6 Sec (9.7-11.5)
--- NOTE | 2020-11-01 15:58 | NUR ---
PT HAS BEEN SLEEPING MOST OF THE DAY. WILL AROUSE FROM SLEEP TO VOICE. SOMETIMES WHEN HE FIRST WAKES HE WILL SAY SOMETHING THAT DOESN'T MAKE SENSE BUT CLEARS AFTER A LITTLE TIME. VELÁZQUEZ CATH WAS REMOVED THIS AM AND PT HAS STOOD AT BEDSIDE TO USE URINAL INDEP. TOLERATING DIET. PT DECLINES BATH AND GETTING TO RECLINER CHAIR. MOVES SELF IN BED INDEP. CHANGED TO MEDICAL STATUS AND WILL BE MOVING OUT TO ROOM 336. REPORT GIVEN TO NIDIA KYLE WHO WILL ASSUME CARE.
--- NOTE | 2020-11-01 18:32 | NUR ---
PT TRANSFERED FROM ICU. PT ADMITED WITH ARF, HYPOGLYCEMIA, HAS HX OF CHF, A-FIB. HE IS AWAKE BUT DROWSY. HE IS ORIENTATED TO PERSON, PLACE, AND SITUATION. PT ST WITH HR 114, BUT DID SPIKE TO 144 DURING SHIFT. 2BL AC IV REMOVED. CLIENT WITH POWERGLIDE IN L ARM. DENIES PAIN. ICU STAES HE DID NOT GET OUT OF BED WHILE ON FLOOR. PT UP TO SIDE OF BED AND USED URNAL SBA ASSIST FOR THIS RN. VERBALLY INSTUCTED TO USE CALL LIGHT FOR ASSISTANCE. BED ALARM SET. CLIENT RESTING EYES CLOSED, NO APARENT DISTRESS
--- NOTE | 2020-11-01 20:06 | NUR ---
ASSUMPTION OF CARE. TELEMETRY CALLED REPORTING A HR IN THE 140'S AND STAYING. SINUS AT THIS TIME. TACHYPNEA. CHEST DISCOMFORT MID STERNUM ONLY. DOES NOT GET WORSE OR BETTER. STATES HE FEEL LIKE IT IS A PANIC ATTACK, HE IS GETTING THEM OFF AND ON AND IS VERY ANXIOUS. THE SOUND OF THE IV GOING OFF STARTED IT. HIGH PITCH NOISES OR LOTS OF NOISE CAUSES THE SENSORY OVERLOAD LEADING TO THE PANIC ATTACK. CALLED HOSPITALIST, GOT ORDER FOR ATIVAN 0.5MG X1. ADMINISTERED IT. WHILE IN THE ROOM IV WENT OFF AND HE JUMPED TO SIDE OF BED YELLING "NO DON'T GO BACK THERE". TALKS VERY SOFT AND IS DIFFICULT TO HEAR AT TIMES. ASKED HIM WHAT I COULD DO FOR HIS ANXIETY HE SAID HE DOES NOT KNOW. WILL CONTINUE TO MONITOR, RECHECK VITALS IN 30-40 MINUTES . CALL LIGHT IS IN REACH.
--- NOTE | 2020-11-01 22:00 | NUR ---
MARCUS CONTINUES TO HOP UP TO A SITTING POSITION IN BED, LEANING OVER, SAYING HE CAN'T BREATH. CHEST TIGHTNESS STILL PRESENT MID STERNUM. VITALS SHOW TACHYCARDIA BETWEEN 110-140'S. SATS ARE 98% ON RA. DID PUT OXYGEN TUBING IN THE ROOM JUST IN CASE WE NEED IT. DOES NOT FEEL SO ANXIOUS AT THIS TIME. RESTLESS. TELE REPORTS NO EVENTS OR CHANGES JUST RUNNING SINUS TACH IN THE 140'S ON AVERAGE. WILL TALK TO CHARGE NURSE FOR OPINION.
--- NOTE | 2020-11-01 22:20 | NUR ---
SPOKE TO MICHAEL HADLEY REGARDING TACHYCARDIA SUSTAINING IN 140'S EVEN AFTER ATIVAN. PATIENT COMPLAINING OF CHEST PAIN AND THAT HE CAN'T BREATH. ORDER FOR 12 LEAD EKG, TROPONIN, D-DIMER.
--- NOTE | 2020-11-01 23:04 | NUR ---
EKG COMPLETED, RESULTS ARE ABNORMAL, AWAITING FOR LAB RESULTS TO COME BACK. HE JUST SAT UP ON SIDE OF THE BED AGAIN. HEAD AND FACE BECOME PURPLE AND THE VEINS IN THE HEAD BULGE SIGNIFICANTLY. HE GRABS HIS HEAD AND IS UNABLE TO LOOK UP, ALL HE CAN DO IS FOCUS ON THE CHEST PAIN TO STOP. HR STILL RUNNING IN THE 140-150'S.
--- NOTE | 2020-11-02 00:30 | NUR ---
MARCUS IS HAVING INCREASE TROUBLE IN BREATHING, UNABLE TO LAY DOWN, SITS LEANING ON THE SIDE TABLE GRABBING HIS HEAD HALF THE TIME. RESPIRATIONS STILL ELEVATED AND SATS 98% ON RA. TROPONIN 0.050, D-DIMER 23.33. EKG ABNORMAL WITH CHANGES FROM PREVIOUS ONE. TELE CONTINUES TO BE IN THE 140'S. CALLED HOSPITALIST AND GOT ORDER FOR LOPRESSOR AND CT PE STUDY TO BE COMPLETED.
--- NOTE | 2020-11-02 01:23 | NUR ---
TITLE 1 TUTOR GOT BACK FROM TAKING MARCUS TO CT. SHE REPORTED ON THE WAY DOWN, HE WAS NOT ACTING RIGHT, GRABBED HIS CHEST AND STARTED TO FALL FORWARDS, HE TURNED BLUE.IN CT HE COMPLAINED ON ABDOMINAL PAIN. ON THE WAY BACK SHE HAD TO HOLD HIM UP IN THE CHAIR TO PREVENT HIM FALLING FORWARDS HE WAS COMPLAINING HE COULD NOT BREATH. 0123 ADMINISTERED LOPRESSOR OVER 4 MINUTES, WHILE ADMINISTERING, MARCUS HAD AN EPISODE WHERE HE STOPPED BREATHING FOR A FEW SECONDS AND EYES ROLLED IN BACK OF HEAD. 30 SECONDS INTO IT SHOOK HIM AND HE TOOK A DEEP BREATH. ALMOST DOWN PUSHING MED AND HE JUMPED UP TO SIDE OF BED SAYING HE COULD NOT BREATH, PANICING, TURNED PURPLE FROM HEAD TO TOE, FEET GOT COLD, NOTICED FLUID RETENTION BLE WHICH IS NEW. RESULTS OF CT BACK-SHOWED NOT ABLE TO DETERMINE IT WAS NOT ABLE TO SEE PULMONARY ARTERIES. ON THE 2 LITERS HE WAS STRUGGLING TO BREATH. EVEN STATED A FEW TIMES "DON'T LET ME ". INFORMED CHARGE NURSE OF CONCERNS AND CALLED PLASTIC SURGERY TECHNICIAN.
--- NOTE | 2020-11-02 01:30 | NUR ---
0130-ILLUMINATING ENGINEER CALLED. TELEMETRY STATES HR 114-132. MARCUS SITTING ON SIDE OF BED, LEANING OVER TABLE, TACHYPENA. HAD HIM LAY BACK IN THE BED. 0135- VS 121/85 REP 28-30 SATS 99% ON 2L NC, HR 117. ILLUMINATING ENGINEER ARRIVED, REPORT GIVEN. MARCUS STATES CHEST HURTS, AND HE CAN NOT BREATH. 0139-DR. BLAS CALLED. ORDER TO TRANSFER TO ICU. RT PLACED ON 5LNC. FEET PALE AND COLD, SOME PURPLE TONE TO THEM. HANDS HAVE SOME CYNOSIS. 0150- REPORT CALLED TO ICU NURSE. 0157- TRANSFER TO ICU-8
--- NOTE | 2020-11-02 02:03 | NUR ---
PT ARRIVES TO ICU 8 PCU STATUS FOLLOWING RAPID RESPONSE FOR CP, SOB, ELEVATED D-DIMER AND RENE CHANGES. PT C/O CLAUSTROPHOBIA AND ABD PAIN. ABD NON RIGID TO PALP, PT REPORTS ANXIETY AND IS COUNTING FOR COMFORT. HR IN 130'S AFTER IV AND PO LOPRESSOR, SPO2 HIGH 90'SN ON NC AT 4LMP.
[2020-11-02 03:38] LABS: BASOPHILS ABSOLUTE AUTO 0.05 K/mm3 (0.00-0.23); BASOPHILS PERCENT AUTO 0 % (0-2); EOSINOPHILS PERCENT AUTO 1 % (0-6); Hematocrit 45.3 % (37.0-53.0); Hemoglobin 14.1 g/dL (13.5-17.5); IMMATURE GRAN PERCENT AUTO 1 % (0-1); LYMPHOCYTES ABSOLUTE AUTO 4.04 K/mm3 (0.84-5.20); LYMPHOCYTES PERCENT AUTO 27 % (21-46); MONOCYTES ABSOLUTE AUTO 1.04 K/mm3 (0.16-1.47); MONOCYTES PERCENT AUTO 7 % (4-13); Mean Corpuscular HGB Conc 31.1 g/dL (31.5-36.5); Mean Corpuscular Volume 100 fL (80-100); Mean Platelet Volume 11.3 fL (9.1-12.4); NEUTROPHILS ABSOLUTE AUTO 9.35 K/mm3 (1.96-9.15); NEUTROPHILS PERCENT AUTO 63 % (41-73); NRBC ABSOLUTE 0.02 K/mm3 (0.00-0.02); NRBC Auto 0.1 /100 WBC (0.0-0.2); Platelet Count 187 K/mm3 (150-400); RDW Coefficient Variation 17.2 % (11.7-14.2); RDW Standard Deviation 59.6 fL (35.1-46.3); Red Blood Cell Count 4.55 M/mm3 (4.30-5.90); White Blood Cell Count 14.78 K/mm3 (4.00-11.30)
[2020-11-02 04:02] LABS: Albumin, Blood 2.5 g/dL (3.4-5.0); Albumin/Globulin Ratio 0.6 (0.8-1.8); Alk Phos 91 U/L (50-136); Anion Gap 9 mmol/L (6-16); Aspartate Aminotrans (AST/SGOT 710 U/L (12-37); Bilirubin, Total 1.9 mg/dL (0.1-1.0); Blood Urea Nitrogen 37 mg/dL (8-24); Bun/Creatinine Ratio 30.3 (12.0-20.0); CO2, Blood 21 mmol/L (21-32); Calcium, Blood 8.3 mg/dL (8.5-10.1); Chloride, Blood 110 mmol/L (98-108); Creatinine, Blood 1.22 mg/dL (0.60-1.20); Glomerular Filtration Rate >60 (60-); Glucose, Blood 116 mg/dL (70-99); Magnesium, Blood 1.7 mg/dL (1.6-2.4); Phosphorus, Blood 2.9 mg/dL (2.5-4.9); Potassium, Blood 4.7 mmol/L (3.5-5.5); Sodium, Blood 140 mmol/L (136-145); Total Protein, Blood 6.5 g/dL (6.4-8.2)
[2020-11-02 04:05] LABS: Alanine Aminotransfer (ALT/SGP 1692 U/L (12-78)
--- NOTE | 2020-11-02 05:29 | NUR ---
RT CALLED TO PT ROOM POST MOLD HOLDER ON , AND MOVE TO ICU, PT PLACED ON V60, PT VERY AGGITATED AND FIGHTING V60 EVEN WHILE RESTRAINED, PT FAILED BIPAP AND CPAP PULLING VERY LARGE VOLUMES BEFORE GOING SOMULENT AND UNRESPONSIVE CHOICE WAS MADE BY MD TO INTUBATE POST V60 FAILURE AND CHANGE IN LOC
[2020-11-02 06:05] LABS: PCO2 Arterial 23.3 mmHg (35-45); PO2 Arterial 312 mmHg (80-100); pH Blood Arterial 7.24 (7.35-7.45)
[2020-11-02 06:28] LABS: Source, Urine Catheter
[2020-11-02 06:34] LABS: Appearance, Urine Clear (Clear); Bilirubin, Urine 1+ (Neg); Blood, Urine 5+ (Neg); Color, Urine Amber (P-Yellow); Glucose Qualitative, Urine Neg (Neg); Ketones, Urine Neg (Neg); Leukocyte Esterase, Urine 1+ (Neg); Nitrite, Urine Neg (Neg); Protein, Urine 3+ (Neg); Specific Gravity, Urine 1.015 (1.003-1.022); Urobilinogen, Urine 2+ (Normal)
[2020-11-02 06:41] LABS: Amorphous Light (0-Heavy); Bacteria Mod /hpf; Spermatozoa Mod /hpf; Squamous Epithelial Cells Few /hpf (Few)
[2020-11-02 06:42] LABS: Renal Epithelial Few /hpf (0-Rare)
--- NOTE | 2020-11-02 07:00 | NUR ---
SHIFT SUMMARY PT HAD RAPID DECLINE FOLLOWING TRANSFER TO ICU FROM MEDICAL FLOOR. HE BECOMES DYSPNEIC AND COMBATIVE AND DOES NOT TOLERATE BIPAP. RSI PERFORMED USING ETOMIDATE, SUCCINYLCHOLINE, AND VERSED. AN 8.5 ETT IS PLACED AT 25CM AT GUM AND CONFIRMED BY EASY-CAP DEVICE AND AUSCULTATION, WITH CXR ORDERED TO CONFIRM. PT BECOMES HYPOTENSIVE AND FLUID BOLUS ALONG WITH PRESSORS ARE ORDERED. PT IS PREPPED FOR CENTRAL LINE PLACEMENT BY DR. BLAS. OG AND VELÁZQUEZ ARE PLACED. PT REMAINED GRAVELY HYPOTENSIVE DESPITE ADMIN OF MULTIPLE PRESSORS AND FLUID BOLUS. THIS RN AND DR BLAS REMAIN AT BEDSIDE FOR CARE. NIPB FAILS TO READ AND UNABLE TO AUSCULTATE BP, BUT FEMORAL PULSE IS PALPATED. MOTTLING EXTENDS FROM FEET TO CHEST. WILL REPORT TO ONCOMING SHIFT.
[2020-11-02 08:38] LABS: Hematocrit 42.2 % (37.0-53.0); Hemoglobin 12.5 g/dL (13.5-17.5); Mean Corpuscular HGB 30.2 pg (26.0-34.0); Mean Corpuscular HGB Conc 29.6 g/dL (31.5-36.5); Mean Corpuscular Volume 102 fL (80-100); Mean Platelet Volume 11.2 fL (9.1-12.4); NRBC ABSOLUTE 0.03 K/mm3 (0.00-0.02); NRBC Auto 0.3 /100 WBC (0.0-0.2); Platelet Count 119 K/mm3 (150-400); RDW Standard Deviation 61.1 fL (35.1-46.3); Red Blood Cell Count 4.14 M/mm3 (4.30-5.90); White Blood Cell Count 11.52 K/mm3 (4.00-11.30)
[2020-11-02 08:50] LABS: Troponin I 0.103 ng/mL (0.000-0.040)
[2020-11-02 09:14] LABS: Albumin, Blood 1.9 g/dL (3.4-5.0); Albumin/Globulin Ratio 0.7 (0.8-1.8); Bun/Creatinine Ratio 23.6 (12.0-20.0); Calcium, Blood 6.9 mg/dL (8.5-10.1); Creatinine, Blood 1.4 mg/dL (0.60-1.20); Globulin, Blood 2.9 g/dL (2.2-4.0); Potassium, Blood 7.2 mmol/L (3.5-5.5); Total Protein, Blood 4.8 g/dL (6.4-8.2)
[2020-11-02 09:54] LABS: BASOPHILS PERCENT MAN 0 % (0-2); EOSINOPHILS PERCENT MAN 0 % (0-6); LYMPHOCYTES PERCENT MAN 20 % (21-46); METAMYELOCYTE ABSOLUTE MAN 0.11 K/mm3 (0.00-0.00); METAMYELOCYTE PERCENT MAN 1 % (0-0); MONOCYTES ABSOLUTE MAN 1.95 K/mm3 (0.16-1.47); MONOCYTES PERCENT MAN 17 % (4-13); NEUTROPHILS ABSOLUTE MAN 7.14 K/mm3 (1.96-9.15); SEG NEUTROPHILS PERCENT MAN 62 % (41-73); TOTAL CELLS COUNTED 100
--- NOTE | 2020-11-02 09:59 | NUR ---
ASSUMED CARE BEDSIDE REPORT FROM NICO KYLE. PT INTUBATED AND SEDATED. VENT SETTINGS AC 16/500/5/50%. PRECEDEX GTT 0.7 MCG/KG/HR. PT ON LEVOPHED, VASOPRESSIN, PHENYLEPHRINE GTT FOR BP. UNABLE TO DOPPLER RADIAL OR BRACHIAL PULSES. NO BP BY MONITOR. PT MOTTLED TO LEGS, FACE, HANDS. NO PURPOSEFUL MOVMENTS. PUPILS 2 CM, REACTIVE. PT DNR AT SHIFT CHANGE. LUNGS CLEAR. NO COUGH, GAG REFLEX. IRREGULAR GUPPIE RESP. DIFFICULT TO OBTAIN O2 SATS. FIO2 INCREASED TO 100% BY RT. VELÁZQUEZ PATENT, DRAINING SCANT DARK YELLOW URINE TO GRAVITY. CENTRAL LINE TO RIGHT IJ, GAUZE UNDER CHG DRESSING. POWERGLIDE TO LUE. DR LUDWIG NOTIFIED JUST AFTER SHIFT CHANGE. PT CODE STATUS CHANGED TO FULL CODE AND ETHICS CONSULT ORDERED. 2L BOLUS OF LR STARTED. DR LUDWIG AT BEDSIDE FOR ART LINE PLACEMENT, RIGHT GROIN. INITIAL SBP 70'S c MAPS 50'S. EPI GTT AND DOBUTAMINE GTT ADDED. AMIODORONE PLACED ON STANDBY. HEPARIN GTT CONTINUES AT 13 UNITS/KG/HR. SEE FLOW SHEET FOR TITRATIONS. PT CONTINUES TO HAVE MOTTLING TO FACE, LEGS, IMPROVED c INCREASE IN BP. HR CURRENTLY IRREGULAR, RATE 100'S. MAP >65. OGT PLACED TO LIS, DARK MAROON COFFEE GROUND LIKE EMESIS OUT. CRITICAL K FROM LAB, CA GLUCONATE, INSULIN, D5, AND LASIX GIVEN ORDERED. ECHO COMPLETE. PHARMACY NOTIFIED TO CONCENTRATE ALL DRIPS. PT BEGAN TO MOVE ARMS, LEGS, PROPOFOL GTT STARTED FOR SEDATION. WILL CONTINUE TO MONITOR.
--- NOTE | 2020-11-02 11:35 | NUR ---
Ethics consultation order received and processed. EHR case notes reviewed and conversations facilitated with jones stakeholders i.e. palliative care, key account manager, nursing and RPD. 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 Given the complexity and severity of his medical condition, a low likelihood of survival is projected, and the deployment of aggressive measures of treatment may prove to be disproportionate, or entirely non-beneficial. In the event that the principals status worsens and he undergoes further decompensation, unless we can successfully establish contact with his mother, which we are attempting to do in earnest, we will need two provider attestation to confirm that heroic interventions are unlikely to achieve a resonable clinical benefit, and that despite such valiant efforts, the principal will most probably suffer demise. Under such circumstances altering the code status would be in good alignment with proper medicine and law, and would be in accord with the dignity of the human person. Thank you for this consult. Ruben Marie Th.D.
[2020-11-02 11:51] LABS: PCO2 Arterial 27.2 mmHg (35-45); PO2 Arterial 281 mmHg (80-100); pH Blood Arterial 7.17 (7.35-7.45)
[2020-11-02 12:39] LABS: Hematocrit 43.8 % (37.0-53.0); Hemoglobin 12.9 g/dL (13.5-17.5); Mean Corpuscular HGB 30.1 pg (26.0-34.0); Mean Corpuscular HGB Conc 29.5 g/dL (31.5-36.5); Mean Corpuscular Volume 102 fL (80-100); Mean Platelet Volume 11.6 fL (9.1-12.4); NRBC ABSOLUTE 0.04 K/mm3 (0.00-0.02); NRBC Auto 0.1 /100 WBC (0.0-0.2); Platelet Count 114 K/mm3 (150-400); RDW Standard Deviation 62.4 fL (35.1-46.3); Red Blood Cell Count 4.28 M/mm3 (4.30-5.90)
--- NOTE | 2020-11-02 12:39 | NUR ---
Echocardiogram performed by Brooke Morales under my supervision.
[2020-11-02 12:40] LABS: International Normalized Ratio 2.96; Prothrombin Time Results 29.8 Sec (9.7-11.5)
[2020-11-02 13:04] LABS: Magnesium, Blood 1.7 mg/dL (1.6-2.4)
[2020-11-02 13:06] LABS: Albumin, Blood 1.9 g/dL (3.4-5.0); Albumin/Globulin Ratio 0.6 (0.8-1.8); Bun/Creatinine Ratio 22.8 (12.0-20.0); Calcium, Blood 7.8 mg/dL (8.5-10.1); Creatinine, Blood 1.62 mg/dL (0.60-1.20); Globulin, Blood 3.3 g/dL (2.2-4.0); Potassium, Blood 5.4 mmol/L (3.5-5.5); Total Protein, Blood 5.2 g/dL (6.4-8.2)
[2020-11-02 13:18] LABS: BASOPHILS PERCENT MAN 0 % (0-2); EOSINOPHILS PERCENT MAN 0 % (0-6); LYMPHOCYTES ABSOLUTE MAN 4.53 K/mm3 (0.84-5.20); LYMPHOCYTES PERCENT MAN 17 % (21-46); MONOCYTES PERCENT MAN 9 % (4-13); MYELOCYTE ABSOLUTE MAN 0.26 K/mm3 (0.00-0.00); MYELOCYTE PERCENT MAN 1 % (0-0); NEUTROPHILS ABSOLUTE MAN 19.49 K/mm3 (1.96-9.15); SEG NEUTROPHILS PERCENT MAN 73 % (41-73); TOTAL CELLS COUNTED 100
[2020-11-02 13:40] LABS: Phosphorus, Blood 5.9 mg/dL (2.5-4.9)
--- NOTE | 2020-11-02 17:19 | NUR ---
SHIFT SUMMARY PT REMAINS INTUBATED AND SEDATED. VENT SETTINGS AC 16/500/5/60%. LUNGS CLEAR. SMALL AMOUNT OF THIN, YELLOW SECRETIONS THROUGH ETT. PT HAS OCCASIONAL COUGH REFLEX c NOXIOUS STIMULI. DOES NOT OPEN EYES OR FOLLOW COMMANDS. NO WITHDRAWAL FROM PAIN. PROPOFOL GTT 15 MCG/KG/MIN. ECHO COMPLETED THIS SHIFT, EF 20-25%. 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 ART LINE TO RIGHT FEMORAL. RATE 70-90'S. UNABLE TO PALPATE RADIAL PULSE. MAP >65. CURRENTLY LEVO GTT 30 MCG/MIN, VASOPRESSIN 0.04 UNITS/MIN, PHENLEPHRINE 200 MCG/MIN, EPI 15 MCG/MIN, DOBUTAMINE 5 MCG/KG/MIN. COLOR IMPROVED THIS SHIFT. MOTTLING STILL PRESENT TO KNEES BILATERALLY. HANDS AND FEET CALLACED AND DISCOLORED, UNABLE TO ASSESS CAP REFILL. HEPARIN GTT FOR AFIB CONTINUES, 12 UNITS/KG/HR. BICARB DRIP STARTED THIS SHIFT, 125 ML/HR. PHARMACY CONSULTED TO CONCENTRATE GTTS. PT +>9L THIS SHIFT. 35 ML DARK YELLOW URINE OUT, LASIX 40 MG IVP GIVEN EARLIER IN SHIFT. HYPER k+ TREATED. OGT PLACED TO LIS, 150 ML DARK COFFEE GROUND EMESIS OUT. CENTRAL LINE DRESSING CHANGED THIS SHIFT, CONTINUES TO OOZE. ATTEMPTED MADE BY NURSING SUPERVIOR AND PALLATIVE CARE TO LOCATE FAMILY. HAVE NOT HEARD RESULTS. WILL CONTINUE TO MONITOR UNTIL REPORT TO ONCOMING NURSE.
--- NOTE | 2020-11-02 18:43 | NUR ---
CODE BLUE BP TRENDING DOWN, EPI GTT AND LEVOPHED GTT INCREASED. CHARGE NURSE CALLED TO BEDSIDE. DR LUDWIG CALLED. PEA AT 1813, CODE CALLED. SEE CODE BLUE SHEET. TOD 1824.
--- NOTE | 2020-11-02 18:44 | NUR ---
Spiritual care note: Present throughout code blue. Prayer provided at TOD. No family/friends.
== END 2020-11-02 18:25 | DRG 917 ==
LOC: ER 03:48 → ICUW 04:57 → ICUE 05:06 → ICUW 05:06 → ICUE 05:39 → MEDS 11-01 16:43 → ICUE 11-02 01:43
PROVIDERS: Emergency Medicine; Internal Medicine; Internal Medicine Critical Care Medicine; Internal Medicine Pulmonary Disease; ADMIT Internal Medicine
PROC: 0BH17EZ Insertion of Endotracheal Airway into Trachea, Via Natural or Artificial Opening (ICD-10-PCS; principal; 2020-10-30)
PROC: 5A1945Z Respiratory Ventilation, 24-96 Consecutive Hours (ICD-10-PCS; 2020-10-30)
PROC: 0BH17EZ Insertion of Endotracheal Airway into Trachea, Via Natural or Artificial Opening (ICD-10-PCS; 2020-11-02)
PROC: 5A1935Z Respiratory Ventilation, Less than 24 Consecutive Hours (ICD-10-PCS; 2020-11-02)
PROC: 5A09357 Assistance with Respiratory Ventilation, Less than 24 Consecutive Hours, Continuous Positive Airway Pressure (ICD-10-PCS; 2020-11-02)
PROC: 02HV33Z Insertion of Infusion Device into Superior Vena Cava, Percutaneous Approach (ICD-10-PCS; 2020-11-02)
PROC: 3E033XZ Introduction of Vasopressor into Peripheral Vein, Percutaneous Approach (ICD-10-PCS; 2020-11-02)
DX: T43.621A Poisoning by amphetamines, accidental (unintentional), initial encounter (principal); G92 Toxic encephalopathy; J96.01 Acute respiratory failure with hypoxia; I50.23 Acute on chronic systolic (congestive) heart failure; N17.9 Acute kidney failure, unspecified; E87.2 Acidosis; I48.20 Chronic atrial fibrillation, unspecified; I48.92 Unspecified atrial flutter; I25.3 Aneurysm of heart; I42.0 Dilated cardiomyopathy; I11.0 Hypertensive heart disease with heart failure; R57.0 Cardiogenic shock; Z79.01 Long term (current) use of anticoagulants; F17.210 Nicotine dependence, cigarettes, uncomplicated; I27.20 Pulmonary hypertension, unspecified; I34.0 Nonrheumatic mitral (valve) insufficiency; E16.2 Hypoglycemia, unspecified; I95.9 Hypotension, unspecified; Z59.0 Homelessness; E87.5 Hyperkalemia; Z78.1 Physical restraint status; Y92.238 Other place in hospital as the place of occurrence of the external cause
CPT/HCPCS: 31500; 36415; 36556; 36600; 51702; 70450; 71045; 71260; 76705; 80047; 80053; 81001; 82140; 82330; 82533; 82803; 82947; 83605; 83690; 83735; 83880; 84100; 84132; 84145; 84484; 85014; 85025; 85379; 85610; 85730; 87086; 92950; 93005; 93010; 93308; 93321; 94002; 94003; 94660; 96372; 96374; 96375; 96376; 99285-25; A9270; A9270-GY; C1751; G0378; G0480; J0171; J0282; J0330; J0456; J0696; J1250; J1644; J1650; J1720; J1815; J1940; J2060; J2250; J2370; J2704; J3010; J3480; J7030; J7040; J7050; J7060; J7070; J7120; Q9967